=== PATIENT | male | born 1975 | race African-American/Black ===

== ENCOUNTER 2018-10-30 20:20 | Inpatient (IN) | payer BC, OTHER ==
[~2018-10-30] VITALS: Ht 167.6 cm; Wt 113.9 kg
[2018-10-30 21:09] LABS: BASO # 0.1 x10^3/uL (0.0-0.2); BASO % 1 % (0-3); EOS % 0 % (0-3); HEMATOCRIT 43.6 % (39.0-53.0); HEMOGLOBIN 15.3 g/dL (13.0-17.5); LYMPH # 1.2 x10^3/uL (1.0-4.8); LYMPH % 9 % (24-48); MEAN CORPUSCULAR HEMOGLOBIN 30 pg (25-35); MEAN CORPUSCULAR HGB CONC 35 g/dL (31-37); MEAN CORPUSCULAR VOLUME 87 fL (79-100); MONO % 7 % (0-9); NEUT # 11.4 x10^3uL (1.8-7.7); NEUT % 83 % (31-73); PLATELET COUNT 223 x10^3/uL (140-400); RED BLOOD COUNT 5.04 x10^6/uL (4.30-5.70); WHITE BLOOD COUNT 13.7 x10^3/uL (4.0-11.0)
[2018-10-30 21:29] LABS: ALBUMIN 3.6 g/dL (3.4-5.0); ALBUMIN/GLOBULIN RATIO 0.7 (1.0-1.7); CALCIUM 8.7 mg/dL (8.5-10.1); CREATININE 1.8 mg/dL (0.7-1.3); GFR 50.1; TOTAL BILIRUBIN 0.7 mg/dL (0.2-1.0); TOTAL PROTEIN 8.6 g/dL (6.4-8.2)
[2018-10-30 21:30] LABS: POTASSIUM 2.8 mmol/L (3.5-5.1)
[2018-10-30] MEDS ORDERED: IV NORMAL SALINE 1000ML BAG 1,000 ML IV ONE (21:30)
[2018-10-30] MEDS ORDERED: ACETAMINOPHEN 500 MG TABLET PO ONE (21:30)
[2018-10-30] MEDS ORDERED: LABETALOL 20 MG/4 ML DISP.SYRIN. IVP ONE (21:30)
--- NOTE | 2018-10-30 21:49 | RAD ---
Exam performed: CT scan of the head without contrast. Date of Service: 10/30/2018. Comparison: None available. Clinical History: Headache and fever. Technique: Helical acquisitions are obtained from the foramen magnum to the vertex without intravenous administration of contrast. Findings: The ventricles are midline without evidence of dilatation. Normal osborn-white differentiation is maintained. There is no extra axial fluid collection, intraparenchymal hemorrhage or mass lesion. The visualized portions of the orbits, paranasal sinuses and the mastoid air cells appear clear. The calvarium is intact. Impression: 1. No acute intracranial process detected. PQRS Compliance Statement: One or more of the following individualized dose reduction techniques were utilized for this examination: 1. Automated exposure control 2. Adjustment of the mA and/or kV according to patient size 3. Use of iterative reconstruction technique End impression Single view chest findings: A prior chest x-ray is not available for comparison, however report from chest x-ray dated September 12, 2018 was available There is a left suprahilar masslike opacity abutting the mediastinal surface. The right lung is clear. There is no pleural effusion or pneumothorax. Bones are normal. IMPRESSION: Left suprahilar masslike opacity. This could represent a round pneumonia or mass. Since this appears new since the prior exam as per the report, round pneumonia is suspected. Short-term interval follow-up chest x-ray after appropriate therapy may be obtained to ensure interval resolution. Electronically signed by: Umu Gordon MD (10/30/2018 9:46 PM) [facility]
[2018-10-30] MEDS ORDERED: ASPIRIN CHEWABLE 81 MG TABLET. PO ONE (22:00)
[2018-10-30] MEDS ORDERED: cefTRIAXone IV Push 1 GM VIAL. IVP ONE (22:00)
[2018-10-30] MEDS ORDERED: POTASSIUM CHLORIDE 20 MEQ/15 ML ORAL LIQUID. PO ONE (22:00)
[2018-10-30] MEDS ORDERED: DOXYCYCLINE HYCLATE 100 MG in IV DEXTROSE 5% 100ML 100 ML IV ONE (22:00)
[2018-10-30] MEDS ORDERED: LABETALOL 20 MG/4 ML DISP.SYRIN. IVP PRN (22:30)
[2018-10-30] MEDS ORDERED: ACETAMINOPHEN 325 MG TABLET. PO PRN (22:30)
[2018-10-30] MEDS ORDERED: ONDANSETRON PF 4 MG/2 ML VIAL. IV PRN (22:30)
[2018-10-30] MEDS ORDERED: BENZOCAINE/MENTHOL LOZENGE. PO PRN (22:30)
[2018-10-30] MEDS ORDERED: diphenhydrAMINE HCL 25 MG CAPSULE PO PRN (22:30)
[2018-10-30] MEDS ORDERED: METOPROLOL TARTRATE 5 MG/5 ML VIAL. IVP PRN (22:30)
--- NOTE | 2018-10-30 23:11 | PHYS DOC ---
Past Medical History Past Medical History: Hypertension Past Surgical History: Other Additional Past Surgical Histo: DENTAL WORK Alcohol Use: None Drug Use: None Adult General Chief Complaint Chief Complaint: HYPERTENSION HPI HPI Patient is a 43 year old male history of hypertension who is presenting with dizziness lightheadedness and just doesn't feel that well has been feeling weak all the last several days. No chest pain really no shortness of breath no cough some mild body aches no pain with urination no abdominal pain dizziness is described as lightheadedness mild frontal headache. Has been taking blood pressure medication amlodipine and lisinopril and one other one he tells me. Has not seen his doctor in a while however Finally BP was elevated 200 range at home so he came to the emergency room for evaluation. Review of Systems Review of Systems Constitutional: Denies fever or chills [] Eyes: Denies change in visual acuity, redness, or eye pain [] HENT: Denies nasal congestion or sore throat [] Respiratory: Denies cough or shortness of breath [] Cardiovascular: No additional information not addressed in HPI [] GI: Denies abdominal pain, nausea, vomiting, bloody stools or diarrhea [] : Denies dysuria or hematuria [] Musculoskeletal: Denies back pain or joint pain [] Integument: Denies rash or skin lesions [] Neurologic: Denies headache, focal weakness or sensory changes [] Endocrine: Denies polyuria or polydipsia [] All other systems were reviewed and found to be within normal limits, except as documented in this note. Current Medications Current Medications Current Medications Medications (Trade) Dose Ordered Sig/Roselia Start Time Stop Time Status Last Admin Dose Admin Acetaminophen (Tylenol) 500 mg PRN Q6HRS PRN 10/30/18 22:30 Albuterol/ Ipratropium (Duoneb) 3 ml RTQID 10/31/18 08:00 Aspirin (Children'S Aspirin) 324 mg 1X ONCE 10/30/18 22:00 10/30/18 22:01 DC 10/30/18 22:07 324 MG Azithromycin (Zithromax) 250 mg DAILY 10/31/18 09:00 Ceftriaxone Sodium (Rocephin) 1 gm Q24H 10/31/18 22:00 Diphenhydramine HCl (Benadryl) 25 mg PRN QHS PRN 10/30/18 22:30 Doxycycline Hyclate 100 mg/ Dextrose 100 ml @ 50 mls/hr 1X ONCE 10/30/18 22:00 10/30/18 23:59 10/30/18 22:08 50 MLS/HR Guaifenesin (Robitussin Dm) 10 ml PRN Q6HRS PRN 10/30/18 22:30 Labetalol HCl (Normodyne Iv Push) 20 mg PRN Q2HRS PRN 10/30/18 22:30 10/30/18 23:00 DC Lactobacillus Rhamnosus (Culturelle) 1 cap BID 10/31/18 09:00 Metoprolol Tartrate (Lopressor Vial) 10 mg PRN Q6HRS PRN 10/30/18 22:30 Ondansetron HCl (Zofran) 4 mg PRN Q6HRS PRN 10/30/18 22:30 Potassium Chloride (KCl Oral Soln) 40 meq 1X ONCE 10/30/18 22:00 10/30/18 22:01 DC 10/30/18 22:07 40 MEQ Sodium Chloride 1,000 ml @ 100 mls/hr Q10H 10/30/18 22:30 Throat Lozenges (Cepacol Sore Throat Lozenge) 1 kasey PRN Q2HRS PRN 10/30/18 22:30 Allergies Allergies Allergies Coded Allergies Type Severity Reaction Last Updated Verified No Known Drug Allergies 10/30/18 No Physical Exam Physical Exam Constitutional: Well developed, well nourished, no acute distress, non-toxic appearance. [] HENT: Normocephalic, atraumatic, bilateral external ears normal, oropharynx moist, no oral exudates, nose normal. [] Eyes: PERRLA, EOMI, conjunctiva normal, no discharge. [] Neck: Normal range of motion, no tenderness, supple, no stridor. [] Cardiovascular:Heart rate regular rhythm, no murmur [] Lungs & Thorax: Decreased breath sounds in the left midlung field Abdomen: Bowel sounds normal, soft, no tenderness, no masses, no pulsatile masses. [] Skin: Warm, dry, no erythema, no rash. [] Back: No tenderness, no CVA tenderness. [] Extremities: No tenderness, no cyanosis, no clubbing, ROM intact, no edema. [] Neurologic: Alert and oriented X 3, normal motor function, normal sensory function, no focal deficits noted. [] Psychologic: Affect normal, judgement normal, mood normal. [] Current Patient Data Vital Signs Vital Signs Date Time Temp Pulse Resp B/P (MAP) Pulse Ox O2 Delivery O2 Flow Rate FiO2 10/30/18 21:15 97 212/131 10/30/18 20:30 103.0 18 96 Room Air 103.0 Lab Values Laboratory Tests Test 10/30/18 20:55 White Blood Count 13.7 x10^3/uL (4.0-11.0) H Red Blood Count 5.04 x10^6/uL (4.30-5.70) Hemoglobin 15.3 g/dL (13.0-17.5) Hematocrit 43.6 % (39.0-53.0) Mean Corpuscular Volume 87 fL (79-100) Mean Corpuscular Hemoglobin 30 pg (25-35) Mean Corpuscular Hemoglobin Concent 35 g/dL (31-37) Red Cell Distribution Width 14.0 % (11.5-14.5) Platelet Count 223 x10^3/uL (140-400) Neutrophils (%) (Auto) 83 % (31-73) H Lymphocytes (%) (Auto) 9 % (24-48) L Monocytes (%) (Auto) 7 % (0-9) Eosinophils (%) (Auto) 0 % (0-3) Basophils (%) (Auto) 1 % (0-3) Neutrophils # (Auto) 11.4 x10^3uL (1.8-7.7) H Lymphocytes # (Auto) 1.2 x10^3/uL (1.0-4.8) Monocytes # (Auto) 1.0 x10^3/uL (0.0-1.1) Eosinophils # (Auto) 0.0 x10^3/uL (0.0-0.7) Basophils # (Auto) 0.1 x10^3/uL (0.0-0.2) Sodium Level 139 mmol/L (136-145) Potassium Level 2.8 mmol/L (3.5-5.1) *L Chloride Level 100 mmol/L (98-107) Carbon Dioxide Level 30 mmol/L (21-32) Anion Gap 9 (6-14) Blood Urea Nitrogen 12 mg/dL (8-26) Creatinine 1.8 mg/dL (0.7-1.3) H Estimated GFR (Cockcroft-Gault) 50.1 BUN/Creatinine Ratio 7 (6-20) Glucose Level 111 mg/dL (70-99) H Lactic Acid Level 1.3 mmol/L (0.4-2.0) Calcium Level 8.7 mg/dL (8.5-10.1) Total Bilirubin 0.7 mg/dL (0.2-1.0) Aspartate Amino Transferase (AST) 28 U/L (15-37) Alanine Aminotransferase (ALT) 36 U/L (16-63) Alkaline Phosphatase 68 U/L (46-116) Troponin I Quantitative 0.295 ng/mL (0.000-0.055) TM-Nvq-O-Type Natriuretic Peptide 1006 pg/mL (0-124) H Total Protein 8.6 g/dL (6.4-8.2) H Albumin 3.6 g/dL (3.4-5.0) Albumin/Globulin Ratio 0.7 (1.0-1.7) L Procalcitonin < 0.10 ng/mL (0.00-0.10) Laboratory Tests 10/30/18 20:55 Laboratory Tests 10/30/18 20:55 EKG EKG []EKG shows a sinus tachycardia rate 105 there are some T-wave inversions laterally this could be related to strain pattern however no old EKG is noted there is no ST elevation Radiology/Procedures Radiology/Procedures [] Impressions: Findings: The ventricles are midline without evidence of dilatation. Normal osborn-white differentiation is maintained. There is no extra axial fluid collection, intraparenchymal hemorrhage or mass lesion. The visualized portions of the orbits, paranasal sinuses and the mastoid air cells appear clear. The calvarium is intact. Impression: 1. No acute intracranial process detected. PQRS Compliance Statement: One or more of the following individualized dose reduction techniques were utilized for this examination: 1. Automated exposure control 2. Adjustment of the mA and/or kV according to patient size 3. Use of iterative reconstruction technique End impression Single view chest findings: A prior chest x-ray is not available for comparison, however report from chest x-ray dated September 12, 2018 was available There is a left suprahilar masslike opacity abutting the mediastinal surface. The right lung is clear. There is no pleural effusion or pneumothorax. Bones are normal. IMPRESSION: Left suprahilar masslike opacity. This could represent a round pneumonia or mass. Since this appears new since the prior exam as per the report, round pneumonia is suspected. Short-term interval follow-up chest x-ray after appropriate therapy may be obtained to ensure interval resolution. Electronically signed by: Umu Gordon MD (10/30/2018 9:46 PM) [facility] Course & Med Decision Making Course & Med Decision Making Pertinent Labs and Imaging studies reviewed. (See chart for details) []Lactic acid 1.3 the potassium was repleted the troponin the BNP are elevated somewhat. This is likely related to hypertensive urgency. Chest x-ray shows pneumonia patient had positive SIRS criteria patient was given IV fluids as well as appropriate antibiotics Lactic acid was normal blood pressure was very very elevated in fact was over 200 systolic so we gave a dose of labetalol for that due to the elevated troponin however I was cautious to not lower the blood pressure too much given the fever and pneumonia on examination Discussed with Dr. PRAKASH for admitted for pneumonia and hypertensive urgency I told the patient about the importance of chest x-ray follow-up in 1 month to ensure that this sort of unusual location of pneumonia clears up Critical care time was 35 minutes exclusive of procedures. For management of acute hypertensive urgency requiring IV blood pressure control. Dragon Disclaimer Dragon Disclaimer This electronic medical record was generated, in whole or in part, using a voice recognition dictation system. Departure Departure Impression: Primary Impression: Hypertensive urgency Additional Impression: Pneumonia Disposition: ADMITTED INPATIENT Admitting Physician: HIMAlana Condition: STABLE Referrals: NO PCP (PCP) Problem Qualifiers ANIYAH MCKENZIE MD Oct 30, 2018 23:11
[2018-10-31] VITALS (9 sets, daily range): BP systolic 151–221; BP diastolic 81–120
[2018-10-31] MEDS: IV NORMAL SALINE 1000ML BAG 1,000 ML IV SCH ×2 (01:07→09:40)
[2018-10-31] MEDS: IPRATRPIUM/ALBUTEROL 0.5/2.5MG 3 ML NEBU. NEB SCH ×4 (07:16→20:13)
--- NOTE | 2018-10-31 07:45 | EKG ---
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
[2018-10-31] MEDS: LACTOBACILLUS RHAMNOSUS GG 1 CAPSULE. PO SCH ×2 (07:49→21:26)
[2018-10-31] MEDS: AZITHROMYCIN 250 MG TABLET. PO SCH (07:49)
[2018-10-31 09:33] LABS: CALCIUM 8.3 mg/dL (8.5-10.1); GFR 44.3; POTASSIUM 3.2 mmol/L (3.5-5.1)
[2018-10-31] MEDS: hydrALAZINE 20 MG/ML VIAL. IVP PRN (09:40)
[2018-10-31 10:42] LABS: CHOLESTEROL/HDL RATIO 3.7
[2018-10-31] MEDS ORDERED: METOPROLOL TART IMMED RELEASE 25 MG TABLET. PO SCH (12:00)
[2018-10-31] MEDS ORDERED: cloNIDine HCL 0.1 MG TABLET PO SCH (12:00)
--- NOTE | 2018-10-31 12:52 | PDOC2 ---
CONSUELO WALLACE RESEARCH MECHANIC 10/31/18 1252: CARDIAC CONSULT DATE OF CONSULT Date of Consult DATE: 10/31/18 TIME: 12:11 REASON FOR CONSULT Reason for Consult: HTN urgency REFERRING PHYSICIAN Referring Physician: Yokasta SOURCE Source: Chart review, Patient HISTORY OF PRESENT ILLNESS HISTORY OF PRESENT ILLNESS This is a pleasant 43 yo male admitted for complains of FIGUEROA and dizziness. Reports that since last week he has been having episodes of bifrontal FIGUEROA and lightheadedness. No nausea, vomiting or any abdominal pain. No SOA, chest pain or palpitations. Reports no fever but did have some chills Wednesday. He has not been feeling that well. No recent falls, passing out or any injury. Reports no auditory or visual deficits and no focal neuro deficits. Reports no prior hx of CAD, VTE, arrhythmias, CKD. He has hx of HTN and HLP. He was suppose to be taking BP meds but stopped taking it 6 months ago as he failed to make his appointment with his PCP and his meds did not get refilled. Denies any recreational drug use. No tobacco nor ETOH. He does however go to the gym 30 min cardio and 30 min approx wt lifting 6x weekly without difficulty. He verbalized that he is currently stressed out citing that his father just recently moved in to his house because of dementia. Denies any steroid use. PAST MEDICAL HISTORY Cardiovascular: HTN, Hyperlipidemia Pulmonary: No pertinent hx CENTRAL NERVOUS SYSTEM: Other (No pertinent history) GI: No pertinent hx Heme/Onc: No pertinent hx Hepatobiliary: No pertinent hx Psych: No pertinent hx Musculoskeletal: Other (No pertinent history) Rheumatologic: No pertinent hx Infectious disease: No pertinent hx ENT: No pertinent hx Renal/: No pertinent hx Endocrine: No pertinent hx Dermatology: No pertinent hx PAST SURGICAL HISTORY Past Surgical History: No pertinent history FAMILY HISTORY Family History: Hypertension SOCIAL HISTORY Smoke: No ALCOHOL: none Drugs: None Lives: with Family CURRENT MEDICATIONS CURRENT MEDICATIONS Current Medications Medications (Trade) Dose Ordered Sig/Roselia Route PRN Reason Start Time Stop Time Status Last Admin Dose Admin Sodium Chloride 1,000 ml @ 1,000 mls/hr 1X ONCE IV 10/30/18 21:30 10/30/18 22:29 DC 10/30/18 21:14 Acetaminophen (Tylenol) 1,000 mg 1X ONCE PO 10/30/18 21:30 10/30/18 21:31 DC 10/30/18 21:14 Labetalol HCl (Normodyne Iv Push) 10 mg 1X ONCE IVP 10/30/18 21:30 10/30/18 21:31 DC 10/30/18 21:15 Potassium Chloride (KCl Oral Soln) 40 meq 1X ONCE PO 10/30/18 22:00 10/30/18 22:01 DC 10/30/18 22:07 Ceftriaxone Sodium (Rocephin) 1 gm 1X ONCE IVP 10/30/18 22:00 10/30/18 22:01 DC 10/30/18 22:07 Doxycycline Hyclate 100 mg/ Dextrose 100 ml @ 50 mls/hr 1X ONCE IV 10/30/18 22:00 10/30/18 23:59 DC 10/30/18 22:08 Aspirin (Children'S Aspirin) 324 mg 1X ONCE PO 10/30/18 22:00 10/30/18 22:01 DC 10/30/18 22:07 Albuterol/ Ipratropium (Duoneb) 3 ml RTQID NEB 10/31/18 08:00 10/31/18 11:24 Metoprolol Tartrate (Lopressor Vial) 10 mg PRN Q6HRS PRN IVP HYPERTENSION SBP>160 10/30/18 22:30 10/31/18 07:50 Sodium Chloride 1,000 ml @ 100 mls/hr Q10H IV 10/30/18 22:30 10/31/18 09:40 Azithromycin (Zithromax) 250 mg DAILY PO 10/31/18 09:00 10/31/18 07:49 Lactobacillus Rhamnosus (Culturelle) 1 cap BID PO 10/31/18 09:00 10/31/18 07:49 Hydralazine HCl (Apresoline Inj) 10 mg PRN Q6HRS PRN IVP ELEVATED BP, SEE COMMENTS 10/31/18 09:15 10/31/18 09:40 ALLERGIES ALLERGIES: Coded Allergies: No Known Drug Allergies (Unverified , 10/30/18) ROS Review of System 14 point ROS evaluated with pertinent positives noted per HPI PHYSICAL EXAM General: Alert, Oriented X3, Cooperative, No acute distress HEENT: Atraumatic, Mucous membr. moist/pink Lungs: Clear to auscultation, Normal air movement Heart: Regular rate (SR), Normal S1, Normal S2, No murmurs, Other (S4) Abdomen: Soft, No tenderness Extremities: No cyanosis, No edema Skin: No breakdown, No significant lesion Neuro: Normal speech, Sensation intact Psych/Mental Status: Mental status NL, Mood NL MUSCULOSKELETAL: Osteoarthritic changes both hands VITALS VITALS Vital Signs Date Time Temp Pulse Resp B/P (MAP) Pulse Ox O2 Delivery O2 Flow Rate FiO2 10/31/18 11:25 97 Nasal Cannula 10/31/18 09:40 100 208/119 10/31/18 07:30 98.9 20 98.9 LABS Lab: Laboratory Tests Test 10/30/18 20:55 10/30/18 21:20 10/31/18 00:55 10/31/18 04:20 White Blood Count 13.7 x10^3/uL (4.0-11.0) Red Blood Count 5.04 x10^6/uL (4.30-5.70) Hemoglobin 15.3 g/dL (13.0-17.5) Hematocrit 43.6 % (39.0-53.0) Mean Corpuscular Volume 87 fL (79-100) Mean Corpuscular Hemoglobin 30 pg (25-35) Mean Corpuscular Hemoglobin Concent 35 g/dL (31-37) Red Cell Distribution Width 14.0 % (11.5-14.5) Platelet Count 223 x10^3/uL (140-400) Neutrophils (%) (Auto) 83 % (31-73) Lymphocytes (%) (Auto) 9 % (24-48) Monocytes (%) (Auto) 7 % (0-9) Eosinophils (%) (Auto) 0 % (0-3) Basophils (%) (Auto) 1 % (0-3) Neutrophils # (Auto) 11.4 x10^3uL (1.8-7.7) Lymphocytes # (Auto) 1.2 x10^3/uL (1.0-4.8) Monocytes # (Auto) 1.0 x10^3/uL (0.0-1.1) Eosinophils # (Auto) 0.0 x10^3/uL (0.0-0.7) Basophils # (Auto) 0.1 x10^3/uL (0.0-0.2) Sodium Level 139 mmol/L (136-145) 141 mmol/L (136-145) Potassium Level 2.8 mmol/L (3.5-5.1) 3.2 mmol/L (3.5-5.1) Chloride Level 100 mmol/L (98-107) 100 mmol/L (98-107) Carbon Dioxide Level 30 mmol/L (21-32) 31 mmol/L (21-32) Anion Gap 9 (6-14) 10 (6-14) Blood Urea Nitrogen 12 mg/dL (8-26) 12 mg/dL (8-26) Creatinine 1.8 mg/dL (0.7-1.3) 2.0 mg/dL (0.7-1.3) Estimated GFR (Cockcroft-Gault) 50.1 44.3 BUN/Creatinine Ratio 7 (6-20) Glucose Level 111 mg/dL (70-99) 102 mg/dL (70-99) Lactic Acid Level 1.3 mmol/L (0.4-2.0) Calcium Level 8.7 mg/dL (8.5-10.1) 8.3 mg/dL (8.5-10.1) Total Bilirubin 0.7 mg/dL (0.2-1.0) Aspartate Amino Transf (AST/SGOT) 28 U/L (15-37) Alanine Aminotransferase (ALT/SGPT) 36 U/L (16-63) Alkaline Phosphatase 68 U/L (46-116) Troponin I Quantitative 0.295 ng/mL (0.000-0.055) 0.278 ng/mL (0.000-0.055) 0.281 ng/mL (0.000-0.055) RS-Uxf-N-Type Natriuretic Peptide 1006 pg/mL (0-124) Total Protein 8.6 g/dL (6.4-8.2) Albumin 3.6 g/dL (3.4-5.0) Albumin/Globulin Ratio 0.7 (1.0-1.7) Procalcitonin < 0.10 ng/mL (0.00-0.10) Group A Streptococcus Rapid Negative (NEGATIVE) Triglycerides Level 81 mg/dL (0-150) Cholesterol Level 208 mg/dL (0-200) LDL Cholesterol, Calculated 136 mg/dL (0-100) VLDL Cholesterol, Calculated 16 mg/dL (0-40) Non-HDL Cholesterol Calculated 152 mg/dL (0-129) HDL Cholesterol 56 mg/dL (40-60) Cholesterol/HDL Ratio 3.7 Thyroid Stimulating Hormone (TSH) 0.694 uIU/mL (0.358-3.74) ASSESSMENT/PLAN ASSESSMENT/PLAN 1. HTN urgency: remains labile 2. HLP 3. FIGUEROA/dizziness: due to uncontrolled HTN 4. Noncompliance: last BP med use 6 months ago 5. Elevated troponin: peaked at 0.29. EKG with LVH and diffuse ST-T wave changes, likely from LV strain/repolarization. NO cardiac symptoms. Suspect demand mediated, type 2 Pt does work out 6x weekly 30 min cardio and 30 min wt training without difficulty 6. CAP: per PCP 7. Morbid obesity 8. Renal insufficiency: Cr at 2 possible CKD3 9. 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 TTE. Renal duplex, repeat trop and EKG. UDS, Mg 2. Norvasc. coreg. chlorthalidone. labetolol IV PRN. Pending renal duplex ACEi/ARB would be a consideration 3. Avoid NSAIDs and encouraged HBPM. Dietitian consult for DASH diet. 4. Start on statin and ECASA 81 mg. Replace K 5. Discussed compliance, Follow up in office. ROJAS BURKETT MD 10/31/18 1800: CARDIAC CONSULT ASSESSMENT/PLAN ASSESSMENT/PLAN Patient seen and examined. Agree with RADAR SCIENTIST's assessment and plan. Accelerated hypertension secondary to noncompliance. 2-D echo showed normal LV function. Agree with renal arterial duplex scan to rule out renal vascular hypertension. We will titrate antihypertensives for better blood pressure control. Slight troponin elevation probably demand ischemia. No wall motion abnormalities on echocardiogram. We will consider ischemic evaluation as an outpatient. Thank you for your consultation. CONSUELO WALLACE APRN Oct 31, 2018 12:52 ROJAS BURKETT MD Oct 31, 2018 18:00
[2018-10-31] MEDS: amLODIPine BESYLATE 10 MG TABLET PO SCH (13:54)
[2018-10-31] MEDS: CHLORTHALIDONE 25 MG TABLET. PO SCH (13:54)
[2018-10-31] MEDS: ASPIRIN ENTERIC COATED 81 MG TABLET.DR. PO SCH (13:56)
[2018-10-31 14:14] LABS: BILIRUBIN,URINE NEGATIVE (NEG); CLARITY,URINE CLEAR; COLOR,URINE YELLOW; NITRITE,URINE NEGATIVE (NEG); PROTEIN,URINE 100 mg/dL (NEG-TRACE)
[2018-10-31 14:24] LABS: BACTERIA,URINE 0 /HPF (0-FEW); WBC,URINE 0 /HPF (0-4)
[2018-10-31 14:30] LABS: BARBITURATES NEG (NEG); BENZODIAZEPINES NEG (NEG); CANNABINOIDS NEG (NEG); COCAINE NEG (NEG); METHADONE NEG (NEG); OPIATES NEG (NEG); PHENCYCLIDINE NEG (NEG)
[2018-10-31 14:35] LABS: AMPHETAMINE/METHAMPHETAMINE NEG (NEG)
--- NOTE | 2018-10-31 15:01 | EKG ---
[facility] [address] [place] [address] Test Date: 2018-10-31 Test Time: 13:28:59 Pat Name: SHERRY TOBAR Department: Room: [facility] Gender: M Channel Specialist: : 1975 Requested By: CONSUELO WALLACE Order Number: [id number] Reading MD: Measurements Intervals [place] Rate: 104 P: 50 AL: 138 QRS: 25 QRSD: 84 T: 142 QT: 324 QTc: 426 Interpretive Statements SINUS TACHYCARDIA LEFT ATRIAL ABNORMALITY QRS(T) CONTOUR ABNORMALITY CONSISTENT WITH INFERIOR INFARCT AGE UNDETERMINED T ABNORMALITY IN ANTEROLATERAL LEADS ABNORMAL ECG RI6.01 Unconfirmed report No previous ECG available for comparison
--- NOTE | 2018-10-31 15:04 | NUR ---
Cardiology appt created on behalf of patient at the request of Jamie Lazaro on December 15, 2018 at 1300hrs
[2018-10-31] MEDS: ACETAMINOPHEN 500 MG TABLET PO PRN ×2 (16:13→22:11)
[2018-10-31] MEDS: CARVEDILOL 6.25 MG TABLET. PO SCH (16:13)
--- NOTE | 2018-10-31 16:38 | RAD ---
Arterial duplex ultrasound, bilateral renal arteries 10/31/2018 INDICATION: Elevated creatinine. Elevated blood pressure. Discussion: Ultrasound evaluation of the renal arteries was performed including color Doppler imaging spectral analysis. Gross evaluation of the kidneys demonstrate grossly normal in morphology. Right kidney measures 11.9 cm in length. Left kidney measures 12.6 cm in length. No hydronephrosis is identified. No other focal abnormalities are seen. Limited visualization of the bladder secondary to decompressed state. Peak systolic velocity within the right renal artery:146 cm/s Peak systolic velocity within the left renal artery : 64 cm/s. Peak systolic velocity within the abdominal aorta at the level the renal arteries measures 150 cm/s. Right renal aortic ratio 0.97 Left renal aortic ratio 0.42 (Normal renal aortic ratios are less than 3.5) persistent indices felt to be within normal limits. IMPRESSION: No sonographic evidence of hemodynamically significant renal arterial stenosis is identified. Electronically signed by: Silvano Miranda MD (10/31/2018 4:35 PM) [id number]
[2018-10-31] MEDS ORDERED: POTASSIUM CHLORIDE 20 MEQ TABLET.ER. PO ONE (17:00)
--- NOTE | 2018-10-31 17:14 | CARD ---
MR#: [id number] Date of Study: 10/31/2018 Ordering Physician: NATAN BURCH, Referring Physician: ARDEN PRAKASH Tech: Shabana Hall APPROVED REPORT EXAM: Two-dimensional and M-mode echocardiogram with Doppler and color Doppler. Other Information Quality : GoodHR: 105bpm INDICATION Hypertension/HCVD RISK FACTORS Hyperlipidemia 2D DIMENSIONS RVDd3.1 (2.9-3.5cm)Left Atrium(2D)4.3 (1.6-4.0cm) IVSd1.5 (0.7-1.1cm)Aortic Root(2D)3.2 (2.0-3.7cm) LVDd4.9 (3.9-5.9cm)LVOT Diameter2.2 (1.8-2.4cm) PWd1.5 (0.7-1.1cm)LVDs3.3 (2.5-4.0cm) FS (%) 31.4 %SV65.4 ml LVEF(%)59.2 (>50%) Aortic Valve AoV Peak Rafael.188.8cm/sAoV VTI30.0cm AO Peak GR.14.3mmHgLVOT VTI 17.00cm AO Mean GR.10mmHg Mitral Valve MV E Fuxiijan73.2cm/sMV DECEL [id number] MV A Hjfokmdj95.4cm/sE/A Ratio1.1 TDI Lateral E' P. V5.69cm/sMedial E' P. V5.63cm/s E/Lateral E'15.9E/Medial E'16.0 Tricuspid Valve TR P. Okkbyqsv327nu/sRAP [id number] TR Peak Gr.65uhDxIMNW71ddHq Pulmonary Vein S1 Djkpccgw39.5cm/sS2 Ksbwescn35.33cm/s D2 Zgnrvcdi73.3cm/sPVa ihwgahfo10thch LEFT VENTRICLE The left ventricle is normal size. There is moderate concentric left ventricular hypertrophy. The lef t ventricular systolic function is normal and the ejection fraction is within normal range. EF 55% Th ere is normal LV segmental wall motion. Transmitral Doppler flow pattern is Grade II-pseudonormal omero ling dynamics. RIGHT VENTRICLE The right ventricle is normal size. There is normal right ventricular wall thickness. The right ventr icular systolic function is normal. ATRIA The left atrium is borderline dilated. The right atrium size is normal. The interatrial septum is int act with no evidence for an atrial septal defect or patent foramen ovale as noted on 2-D or Doppler i maging. AORTIC VALVE The aortic valve is normal in structure and function. Doppler and Color Flow revealed no significant aortic regurgitation. There is no significant aortic valvular stenosis. MITRAL VALVE The mitral valve is normal in structure and function. There is no evidence of mitral valve prolapse. There is no mitral valve stenosis. Doppler and Color Flow revealed no mitral valve regurgitation note d. TRICUSPID VALVE The tricuspid valve is normal in structure and function. Doppler and Color Flow revealed no tricuspid valve regurgitation noted with an estimated PAP of 27 mmHg. There is no tricuspid valve stenosis. PULMONIC VALVE Doppler and Color Flow revealed no pulmonic valvular regurgitation. There is no pulmonic valvular terry nosis. GREAT VESSELS The aortic root is normal in size. The IVC is normal in size and collapses >50% with inspiration. PERICARDIAL EFFUSION There is no evidence of significant pericardial effusion. Critical Notification Critical Value: No <Conclusion> There is moderate concentric left ventricular hypertrophy. The left ventricular systolic function is normal and the ejection fraction is within normal range. EF 55% There is normal LV segmental wall motion. Signed by : Mingo Guy, Electronically Approved : 10/31/2018 17:14:04
[2018-10-31] MEDS ORDERED: MAGNESIUM SULFATE 2GM 50 ML IV ONE (17:45)
--- NOTE | 2018-10-31 17:48 | PDOC ---
PULMONARY PROGRESS NOTES Vitals Vital Signs Date Time Temp Pulse Resp B/P (MAP) Pulse Ox O2 Delivery O2 Flow Rate FiO2 10/31/18 16:13 108 166/81 10/31/18 16:01 97 Room Air 10/31/18 15:30 103.0 20 103.0 Labs Laboratory Tests Test 10/30/18 20:55 10/30/18 21:20 10/31/18 00:55 10/31/18 04:20 White Blood Count 13.7 x10^3/uL (4.0-11.0) Red Blood Count 5.04 x10^6/uL (4.30-5.70) Hemoglobin 15.3 g/dL (13.0-17.5) Hematocrit 43.6 % (39.0-53.0) Mean Corpuscular Volume 87 fL (79-100) Mean Corpuscular Hemoglobin 30 pg (25-35) Mean Corpuscular Hemoglobin Concent 35 g/dL (31-37) Red Cell Distribution Width 14.0 % (11.5-14.5) Platelet Count 223 x10^3/uL (140-400) Neutrophils (%) (Auto) 83 % (31-73) Lymphocytes (%) (Auto) 9 % (24-48) Monocytes (%) (Auto) 7 % (0-9) Eosinophils (%) (Auto) 0 % (0-3) Basophils (%) (Auto) 1 % (0-3) Neutrophils # (Auto) 11.4 x10^3uL (1.8-7.7) Lymphocytes # (Auto) 1.2 x10^3/uL (1.0-4.8) Monocytes # (Auto) 1.0 x10^3/uL (0.0-1.1) Eosinophils # (Auto) 0.0 x10^3/uL (0.0-0.7) Basophils # (Auto) 0.1 x10^3/uL (0.0-0.2) Sodium Level 139 mmol/L (136-145) 141 mmol/L (136-145) Potassium Level 2.8 mmol/L (3.5-5.1) 3.2 mmol/L (3.5-5.1) Chloride Level 100 mmol/L (98-107) 100 mmol/L (98-107) Carbon Dioxide Level 30 mmol/L (21-32) 31 mmol/L (21-32) Anion Gap 9 (6-14) 10 (6-14) Blood Urea Nitrogen 12 mg/dL (8-26) 12 mg/dL (8-26) Creatinine 1.8 mg/dL (0.7-1.3) 2.0 mg/dL (0.7-1.3) Estimated GFR (Cockcroft-Gault) 50.1 44.3 BUN/Creatinine Ratio 7 (6-20) Glucose Level 111 mg/dL (70-99) 102 mg/dL (70-99) Lactic Acid Level 1.3 mmol/L (0.4-2.0) Calcium Level 8.7 mg/dL (8.5-10.1) 8.3 mg/dL (8.5-10.1) Total Bilirubin 0.7 mg/dL (0.2-1.0) Aspartate Amino Transf (AST/SGOT) 28 U/L (15-37) Alanine Aminotransferase (ALT/SGPT) 36 U/L (16-63) Alkaline Phosphatase 68 U/L (46-116) Troponin I Quantitative 0.295 ng/mL (0.000-0.055) 0.278 ng/mL (0.000-0.055) 0.281 ng/mL (0.000-0.055) PX-Woi-U-Type Natriuretic Peptide 1006 pg/mL (0-124) Total Protein 8.6 g/dL (6.4-8.2) Albumin 3.6 g/dL (3.4-5.0) Albumin/Globulin Ratio 0.7 (1.0-1.7) Procalcitonin < 0.10 ng/mL (0.00-0.10) Group A Streptococcus Rapid Negative (NEGATIVE) Triglycerides Level 81 mg/dL (0-150) Cholesterol Level 208 mg/dL (0-200) LDL Cholesterol, Calculated 136 mg/dL (0-100) VLDL Cholesterol, Calculated 16 mg/dL (0-40) Non-HDL Cholesterol Calculated 152 mg/dL (0-129) HDL Cholesterol 56 mg/dL (40-60) Cholesterol/HDL Ratio 3.7 Thyroid Stimulating Hormone (TSH) 0.694 uIU/mL (0.358-3.74) Test 10/31/18 12:35 10/31/18 14:03 Magnesium Level 1.6 mg/dL (1.8-2.4) Troponin I Quantitative 0.320 ng/mL (0.000-0.055) Urine Collection Type Unknown Urine Color Yellow Urine Clarity Clear Urine pH 6.0 Urine Specific [place] 1.015 Urine Protein 100 mg/dL (NEG-TRACE) Urine Glucose (UA) Negative mg/dL (NEG) Urine Ketones (Stick) Negative mg/dL (NEG) Urine Blood Trace (NEG) Urine Nitrite Negative (NEG) Urine Bilirubin Negative (NEG) Urine Urobilinogen Dipstick 1.0 mg/dL (0.2 mg/dL) Urine Leukocyte Esterase Negative (NEG) Urine RBC 1-2 /HPF (0-2) Urine WBC 0 /HPF (0-4) Urine Squamous Epithelial Cells None /LPF Urine Bacteria 0 /HPF (0-FEW) Urine Opiates Screen Neg (NEG) Urine Methadone Screen Neg (NEG) Urine Barbiturates Neg (NEG) Urine Phencyclidine Screen Neg (NEG) Urine Amphetamine/Methamphetamine Neg (NEG) Urine Benzodiazepines Screen Neg (NEG) Urine Cocaine Screen Neg (NEG) Urine Cannabinoids Screen Neg (NEG) Urine Ethyl Alcohol Neg (NEG) Laboratory Tests Test 10/30/18 20:55 10/30/18 21:20 10/31/18 00:55 10/31/18 04:20 White Blood Count 13.7 x10^3/uL (4.0-11.0) Red Blood Count 5.04 x10^6/uL (4.30-5.70) Hemoglobin 15.3 g/dL (13.0-17.5) Hematocrit 43.6 % (39.0-53.0) Mean Corpuscular Volume 87 fL (79-100) Mean Corpuscular Hemoglobin 30 pg (25-35) Mean Corpuscular Hemoglobin Concent 35 g/dL (31-37) Red Cell Distribution Width 14.0 % (11.5-14.5) Platelet Count 223 x10^3/uL (140-400) Neutrophils (%) (Auto) 83 % (31-73) Lymphocytes (%) (Auto) 9 % (24-48) Monocytes (%) (Auto) 7 % (0-9) Eosinophils (%) (Auto) 0 % (0-3) Basophils (%) (Auto) 1 % (0-3) Neutrophils # (Auto) 11.4 x10^3uL (1.8-7.7) Lymphocytes # (Auto) 1.2 x10^3/uL (1.0-4.8) Monocytes # (Auto) 1.0 x10^3/uL (0.0-1.1) Eosinophils # (Auto) 0.0 x10^3/uL (0.0-0.7) Basophils # (Auto) 0.1 x10^3/uL (0.0-0.2) Sodium Level 139 mmol/L (136-145) 141 mmol/L (136-145) Potassium Level 2.8 mmol/L (3.5-5.1) 3.2 mmol/L (3.5-5.1) Chloride Level 100 mmol/L (98-107) 100 mmol/L (98-107) Carbon Dioxide Level 30 mmol/L (21-32) 31 mmol/L (21-32) Anion Gap 9 (6-14) 10 (6-14) Blood Urea Nitrogen 12 mg/dL (8-26) 12 mg/dL (8-26) Creatinine 1.8 mg/dL (0.7-1.3) 2.0 mg/dL (0.7-1.3) Estimated GFR (Cockcroft-Gault) 50.1 44.3 BUN/Creatinine Ratio 7 (6-20) Glucose Level 111 mg/dL (70-99) 102 mg/dL (70-99) Lactic Acid Level 1.3 mmol/L (0.4-2.0) Calcium Level 8.7 mg/dL (8.5-10.1) 8.3 mg/dL (8.5-10.1) Total Bilirubin 0.7 mg/dL (0.2-1.0) Aspartate Amino Transf (AST/SGOT) 28 U/L (15-37) Alanine Aminotransferase (ALT/SGPT) 36 U/L (16-63) Alkaline Phosphatase 68 U/L (46-116) Troponin I Quantitative 0.295 ng/mL (0.000-0.055) 0.278 ng/mL (0.000-0.055) 0.281 ng/mL (0.000-0.055) CY-Lmm-L-Type Natriuretic Peptide 1006 pg/mL (0-124) Total Protein 8.6 g/dL (6.4-8.2) Albumin 3.6 g/dL (3.4-5.0) Albumin/Globulin Ratio 0.7 (1.0-1.7) Procalcitonin < 0.10 ng/mL (0.00-0.10) Group A Streptococcus Rapid Negative (NEGATIVE) Triglycerides Level 81 mg/dL (0-150) Cholesterol Level 208 mg/dL (0-200) LDL Cholesterol, Calculated 136 mg/dL (0-100) VLDL Cholesterol, Calculated 16 mg/dL (0-40) Non-HDL Cholesterol Calculated 152 mg/dL (0-129) HDL Cholesterol 56 mg/dL (40-60) Cholesterol/HDL Ratio 3.7 Thyroid Stimulating Hormone (TSH) 0.694 uIU/mL (0.358-3.74) Test 10/31/18 12:35 10/31/18 14:03 Magnesium Level 1.6 mg/dL (1.8-2.4) Troponin I Quantitative 0.320 ng/mL (0.000-0.055) Urine Collection Type Unknown Urine Color Yellow Urine Clarity Clear Urine pH 6.0 Urine Specific [place] 1.015 Urine Protein 100 mg/dL (NEG-TRACE) Urine Glucose (UA) Negative mg/dL (NEG) Urine Ketones (Stick) Negative mg/dL (NEG) Urine Blood Trace (NEG) Urine Nitrite Negative (NEG) Urine Bilirubin Negative (NEG) Urine Urobilinogen Dipstick 1.0 mg/dL (0.2 mg/dL) Urine Leukocyte Esterase Negative (NEG) Urine RBC 1-2 /HPF (0-2) Urine WBC 0 /HPF (0-4) Urine Squamous Epithelial Cells None /LPF Urine Bacteria 0 /HPF (0-FEW) Urine Opiates Screen Neg (NEG) Urine Methadone Screen Neg (NEG) Urine Barbiturates Neg (NEG) Urine Phencyclidine Screen Neg (NEG) Urine Amphetamine/Methamphetamine Neg (NEG) Urine Benzodiazepines Screen Neg (NEG) Urine Cocaine Screen Neg (NEG) Urine Cannabinoids Screen Neg (NEG) Urine Ethyl Alcohol Neg (NEG) Impression . ABNORMAL CXR WILL OBTAIN A CT CHEST AGREE WITH CURRENT RX THANKS BEN WILSON MD Oct 31, 2018 17:48
--- NOTE | 2018-10-31 20:13 | PDOC1 ---
History and Physical Date of Admission Date of Admission DATE: 10/31/18 TIME: 19:53 Identification/Chief Complaint Chief Complaint FIGUEROA, elevated BP Problems: (1) Hypertensive urgency Source Source: Chart review, Patient History of Present Illness History of Present Illness 43 yo male with FIGUEROA and dizziness for several days. no sob or palpitations. dx of with HTN in 2014 and has been on MADHU-I, norvasc and hctz. 6 months ago started to experience rash so stopped BP meds. states BP has been high in 180-200 when he checks. does not follow with PCP at present. since Wednesday last week he has been having episodes of bifrontal FIGUEROA and lightheadedness. no chest pain or palpitations. no prior hx of CAD, VTE, arrhythmias. denies using drugs No tobacco nor ETOH. patient does exercise 6x/week. SBP remains 200s while on floor. at bedside. Past Medical History Cardiovascular: HTN, Hyperlipidemia Pulmonary: No pertinent hx CENTRAL NERVOUS SYSTEM: Other (No pertinent history) GI: No pertinent hx Heme/Onc: No pertinent hx Hepatobiliary: No pertinent hx Psych: No pertinent hx Musculoskeletal: Other (No pertinent history) Rheumatologic: No pertinent hx Infectious disease: No pertinent hx ENT: No pertinent hx Renal/: No pertinent hx Endocrine: No pertinent hx Dermatology: No pertinent hx Past Surgical History Past Surgical History: No pertinent history Family History Family History: Hypertension Social History Smoke: No ALCOHOL: none Drugs: None Current Medications Current Medications Current Medications Sodium Chloride 1,000 ml @ 1,000 mls/hr 1X ONCE IV Last administered on 10/30/18at 21:14; Start 10/30/18 at 21:30; Stop 10/30/18 at 22:29; Status DC Acetaminophen (Tylenol) 1,000 mg 1X ONCE PO Last administered on 10/30/18at 21:14; Start 10/30/18 at 21:30; Stop 10/30/18 at 21:31; Status DC Labetalol HCl (Normodyne Iv Push) 10 mg 1X ONCE IVP Last administered on 10/30/18at 21:15; Start 10/30/18 at 21:30; Stop 10/30/18 at 21:31; Status DC Potassium Chloride (KCl Oral Soln) 40 meq 1X ONCE PO Last administered on 10/30/18at 22:07; Start 10/30/18 at 22:00; Stop 10/30/18 at 22:01; Status DC Ceftriaxone Sodium (Rocephin) 1 gm 1X ONCE IVP Last administered on 10/30/18at 22:07; Start 10/30/18 at 22:00; Stop 10/30/18 at 22:01; Status DC Doxycycline Hyclate 100 mg/ Dextrose 100 ml @ 50 mls/hr 1X ONCE IV Last administered on 10/30/18at 22:08; Start 10/30/18 at 22:00; Stop 10/30/18 at 23:59; Status DC Aspirin (Children'S Aspirin) 324 mg 1X ONCE PO Last administered on 10/30/18at 22:07; Start 10/30/18 at 22:00; Stop 10/30/18 at 22:01; Status DC Acetaminophen (Tylenol) 650 mg PRN Q4HRS PRN PO FEVER; Start 10/30/18 at 22:30; Stop 10/30/18 at 22:30; Status DC Labetalol HCl (Normodyne Iv Push) 20 mg PRN Q2HRS PRN IVP ELEVATED BP, SEE COMMENTS; Start 10/30/18 at 22:30; Stop 10/30/18 at 23:00; Status DC Ondansetron HCl (Zofran) 4 mg PRN Q6HRS PRN IV NAUSEA/VOMITING 1ST CHOICE; Start 10/30/18 at 22:30 Acetaminophen (Tylenol) 500 mg PRN Q6HRS PRN PO MILD PAIN / TEMP Last administered on 10/31/18at 16:13; Start 10/30/18 at 22:30 Albuterol/ Ipratropium (Duoneb) 3 ml RTQID NEB Last administered on 10/31/18at 16:00; Start 10/31/18 at 08:00 Guaifenesin (Robitussin Dm) 10 ml PRN Q6HRS PRN PO COUGH 1ST CHOICE; Start 10/30/18 at 22:30 Diphenhydramine HCl (Benadryl) 25 mg PRN QHS PRN PO INSOMNIA 1ST CHOICE; Start 10/30/18 at 22:30 Metoprolol Tartrate (Lopressor Vial) 10 mg PRN Q6HRS PRN IVP HYPERTENSION SBP>160 Last administered on 10/31/18at 07:50; Start 10/30/18 at 22:30; Stop 10/31/18 at 17:35; Status DC Sodium Chloride 1,000 ml @ 100 mls/hr Q10H IV Last administered on 10/31/18at 09:40; Start 10/30/18 at 22:30; Stop 10/31/18 at 12:44; Status DC Ceftriaxone Sodium (Rocephin) 1 gm Q24H IVP ; Start 10/31/18 at 22:00 Azithromycin (Zithromax) 250 mg DAILY PO Last administered on 10/31/18at 07:49; Start 10/31/18 at 09:00 Throat Lozenges (Cepacol Sore Throat Lozenge) 1 kasey PRN Q2HRS PRN PO SORE THROAT; Start 10/30/18 at 22:30 Lactobacillus Rhamnosus (Culturelle) 1 cap BID PO Last administered on 10/31/18at 07:49; Start 10/31/18 at 09:00 Hydralazine HCl (Apresoline Inj) 10 mg PRN Q6HRS PRN IVP ELEVATED BP, SEE COMMENTS Last administered on 10/31/18at 09:40; Start 10/31/18 at 09:15 Metoprolol Tartrate (Lopressor) 25 mg BID PO ; Start 10/31/18 at 12:00; Stop 10/31/18 at 12:37; Status DC Amlodipine Besylate (Norvasc) 10 mg DAILY PO Last administered on 10/31/18at 13:54; Start 10/31/18 at 12:00 Clonidine HCl (Catapres) 0.1 mg BID PO ; Start 10/31/18 at 12:00; Stop 10/31/18 at 12:37; Status DC Carvedilol (Coreg) 6.25 mg BIDWMEALS PO Last administered on 10/31/18at 16:13; Start 10/31/18 at 17:00 Chlorthalidone (Thalitone) 25 mg DAILY PO Last administered on 10/31/18at 13:54; Start 10/31/18 at 12:30 Atorvastatin Calcium (Lipitor) 20 mg QHS PO ; Start 10/31/18 at 21:00 Labetalol HCl (Normodyne Iv Push) 20 mg PRN Q2HR PRN IVP HYPERTENSION; Start 10/31/18 at 12:30 Aspirin (Ecotrin) 81 mg DAILYWBKFT PO Last administered on 10/31/18at 13:56; Start 10/31/18 at 14:00 Potassium Chloride (Klor-Con) 20 meq 1X ONCE PO Last administered on 10/31/18at 16:13; Start 10/31/18 at 17:00; Stop 10/31/18 at 17:01; Status DC Magnesium Sulfate 50 ml @ 25 mls/hr 1X ONCE IV Last administered on 10/31/18at 18:21; Start 10/31/18 at 17:45; Stop 10/31/18 at 19:44; Status DC Allergies Allergies: Coded Allergies: No Known Drug Allergies (Unverified , 10/30/18) ROS Review of System CONSTITUTIONAL: No fever or chills EYES: No recent changes SKIN: No rash or itching CARDIOVASCULAR: No chest pain, syncope, palpitations, or edema RESPIRATORY: No SOB or cough GASTROINTESTINAL: No nausea, vomiting or abdominal pain NEUROLOGICAL: No headaches or weakness ENDOCRINE: No cold or heat intolerance GENITOURINARY: No urgency or frequency of urination MUSCULOSKELETAL: No back pain or joint pain LYMPHATICS: No enlarged lymph nodes PSYCHIATRIC: No anxiety or depression Physical Exam Physical Exam GENERAL: No apparent distress. Alert and oriented. HEENT: Head normocephalic, atraumatic. NECK: Supple LUNGS: Clear to auscultation. HEART: RRR, S1, S2 present, pulses intact ABDOMEN: Soft, positive bowel sounds. EXTREMITIES: No cyanosis or edema. NEUROLOGIC: Normal speech, normal tone PSYCHIATRIC: Normal affect, normal mood. SKIN: No ulceration. Vitals Vitals Vital Signs Date Time Temp Pulse Resp B/P (MAP) Pulse Ox O2 Delivery O2 Flow Rate FiO2 10/31/18 16:13 108 166/81 10/31/18 16:01 97 Room Air 10/31/18 15:30 103.0 20 103.0 Labs Labs Laboratory Tests Test 10/30/18 20:55 10/30/18 21:20 10/31/18 00:55 10/31/18 04:20 White Blood Count 13.7 x10^3/uL (4.0-11.0) Red Blood Count 5.04 x10^6/uL (4.30-5.70) Hemoglobin 15.3 g/dL (13.0-17.5) Hematocrit 43.6 % (39.0-53.0) Mean Corpuscular Volume 87 fL (79-100) Mean Corpuscular Hemoglobin 30 pg (25-35) Mean Corpuscular Hemoglobin Concent 35 g/dL (31-37) Red Cell Distribution Width 14.0 % (11.5-14.5) Platelet Count 223 x10^3/uL (140-400) Neutrophils (%) (Auto) 83 % (31-73) Lymphocytes (%) (Auto) 9 % (24-48) Monocytes (%) (Auto) 7 % (0-9) Eosinophils (%) (Auto) 0 % (0-3) Basophils (%) (Auto) 1 % (0-3) Neutrophils # (Auto) 11.4 x10^3uL (1.8-7.7) Lymphocytes # (Auto) 1.2 x10^3/uL (1.0-4.8) Monocytes # (Auto) 1.0 x10^3/uL (0.0-1.1) Eosinophils # (Auto) 0.0 x10^3/uL (0.0-0.7) Basophils # (Auto) 0.1 x10^3/uL (0.0-0.2) Sodium Level 139 mmol/L (136-145) 141 mmol/L (136-145) Potassium Level 2.8 mmol/L (3.5-5.1) 3.2 mmol/L (3.5-5.1) Chloride Level 100 mmol/L (98-107) 100 mmol/L (98-107) Carbon Dioxide Level 30 mmol/L (21-32) 31 mmol/L (21-32) Anion Gap 9 (6-14) 10 (6-14) Blood Urea Nitrogen 12 mg/dL (8-26) 12 mg/dL (8-26) Creatinine 1.8 mg/dL (0.7-1.3) 2.0 mg/dL (0.7-1.3) Estimated GFR (Cockcroft-Gault) 50.1 44.3 BUN/Creatinine Ratio 7 (6-20) Glucose Level 111 mg/dL (70-99) 102 mg/dL (70-99) Lactic Acid Level 1.3 mmol/L (0.4-2.0) Calcium Level 8.7 mg/dL (8.5-10.1) 8.3 mg/dL (8.5-10.1) Total Bilirubin 0.7 mg/dL (0.2-1.0) Aspartate Amino Transf (AST/SGOT) 28 U/L (15-37) Alanine Aminotransferase (ALT/SGPT) 36 U/L (16-63) Alkaline Phosphatase 68 U/L (46-116) Troponin I Quantitative 0.295 ng/mL (0.000-0.055) 0.278 ng/mL (0.000-0.055) 0.281 ng/mL (0.000-0.055) CY-Vmc-L-Type Natriuretic Peptide 1006 pg/mL (0-124) Total Protein 8.6 g/dL (6.4-8.2) Albumin 3.6 g/dL (3.4-5.0) Albumin/Globulin Ratio 0.7 (1.0-1.7) Procalcitonin < 0.10 ng/mL (0.00-0.10) Group A Streptococcus Rapid Negative (NEGATIVE) Triglycerides Level 81 mg/dL (0-150) Cholesterol Level 208 mg/dL (0-200) LDL Cholesterol, Calculated 136 mg/dL (0-100) VLDL Cholesterol, Calculated 16 mg/dL (0-40) Non-HDL Cholesterol Calculated 152 mg/dL (0-129) HDL Cholesterol 56 mg/dL (40-60) Cholesterol/HDL Ratio 3.7 Thyroid Stimulating Hormone (TSH) 0.694 uIU/mL (0.358-3.74) Test 10/31/18 12:35 10/31/18 14:03 Magnesium Level 1.6 mg/dL (1.8-2.4) Troponin I Quantitative 0.320 ng/mL (0.000-0.055) Urine Collection Type Unknown Urine Color Yellow Urine Clarity Clear Urine pH 6.0 Urine Specific [place] 1.015 Urine Protein 100 mg/dL (NEG-TRACE) Urine Glucose (UA) Negative mg/dL (NEG) Urine Ketones (Stick) Negative mg/dL (NEG) Urine Blood Trace (NEG) Urine Nitrite Negative (NEG) Urine Bilirubin Negative (NEG) Urine Urobilinogen Dipstick 1.0 mg/dL (0.2 mg/dL) Urine Leukocyte Esterase Negative (NEG) Urine RBC 1-2 /HPF (0-2) Urine WBC 0 /HPF (0-4) Urine Squamous Epithelial Cells None /LPF Urine Bacteria 0 /HPF (0-FEW) Urine Opiates Screen Neg (NEG) Urine Methadone Screen Neg (NEG) Urine Barbiturates Neg (NEG) Urine Phencyclidine Screen Neg (NEG) Urine Amphetamine/Methamphetamine Neg (NEG) Urine Benzodiazepines Screen Neg (NEG) Urine Cocaine Screen Neg (NEG) Urine Cannabinoids Screen Neg (NEG) Urine Ethyl Alcohol Neg (NEG) Laboratory Tests Test 10/30/18 20:55 10/30/18 21:20 10/31/18 00:55 10/31/18 04:20 White Blood Count 13.7 x10^3/uL (4.0-11.0) Red Blood Count 5.04 x10^6/uL (4.30-5.70) Hemoglobin 15.3 g/dL (13.0-17.5) Hematocrit 43.6 % (39.0-53.0) Mean Corpuscular Volume 87 fL (79-100) Mean Corpuscular Hemoglobin 30 pg (25-35) Mean Corpuscular Hemoglobin Concent 35 g/dL (31-37) Red Cell Distribution Width 14.0 % (11.5-14.5) Platelet Count 223 x10^3/uL (140-400) Neutrophils (%) (Auto) 83 % (31-73) Lymphocytes (%) (Auto) 9 % (24-48) Monocytes (%) (Auto) 7 % (0-9) Eosinophils (%) (Auto) 0 % (0-3) Basophils (%) (Auto) 1 % (0-3) Neutrophils # (Auto) 11.4 x10^3uL (1.8-7.7) Lymphocytes # (Auto) 1.2 x10^3/uL (1.0-4.8) Monocytes # (Auto) 1.0 x10^3/uL (0.0-1.1) Eosinophils # (Auto) 0.0 x10^3/uL (0.0-0.7) Basophils # (Auto) 0.1 x10^3/uL (0.0-0.2) Sodium Level 139 mmol/L (136-145) 141 mmol/L (136-145) Potassium Level 2.8 mmol/L (3.5-5.1) 3.2 mmol/L (3.5-5.1) Chloride Level 100 mmol/L (98-107) 100 mmol/L (98-107) Carbon Dioxide Level 30 mmol/L (21-32) 31 mmol/L (21-32) Anion Gap 9 (6-14) 10 (6-14) Blood Urea Nitrogen 12 mg/dL (8-26) 12 mg/dL (8-26) Creatinine 1.8 mg/dL (0.7-1.3) 2.0 mg/dL (0.7-1.3) Estimated GFR (Cockcroft-Gault) 50.1 44.3 BUN/Creatinine Ratio 7 (6-20) Glucose Level 111 mg/dL (70-99) 102 mg/dL (70-99) Lactic Acid Level 1.3 mmol/L (0.4-2.0) Calcium Level 8.7 mg/dL (8.5-10.1) 8.3 mg/dL (8.5-10.1) Total Bilirubin 0.7 mg/dL (0.2-1.0) Aspartate Amino Transf (AST/SGOT) 28 U/L (15-37) Alanine Aminotransferase (ALT/SGPT) 36 U/L (16-63) Alkaline Phosphatase 68 U/L (46-116) Troponin I Quantitative 0.295 ng/mL (0.000-0.055) 0.278 ng/mL (0.000-0.055) 0.281 ng/mL (0.000-0.055) IN-Yjd-E-Type Natriuretic Peptide 1006 pg/mL (0-124) Total Protein 8.6 g/dL (6.4-8.2) Albumin 3.6 g/dL (3.4-5.0) Albumin/Globulin Ratio 0.7 (1.0-1.7) Procalcitonin < 0.10 ng/mL (0.00-0.10) Group A Streptococcus Rapid Negative (NEGATIVE) Triglycerides Level 81 mg/dL (0-150) Cholesterol Level 208 mg/dL (0-200) LDL Cholesterol, Calculated 136 mg/dL (0-100) VLDL Cholesterol, Calculated 16 mg/dL (0-40) Non-HDL Cholesterol Calculated 152 mg/dL (0-129) HDL Cholesterol 56 mg/dL (40-60) Cholesterol/HDL Ratio 3.7 Thyroid Stimulating Hormone (TSH) 0.694 uIU/mL (0.358-3.74) Test 10/31/18 12:35 10/31/18 14:03 Magnesium Level 1.6 mg/dL (1.8-2.4) Troponin I Quantitative 0.320 ng/mL (0.000-0.055) Urine Collection Type Unknown Urine Color Yellow Urine Clarity Clear Urine pH 6.0 Urine Specific [place] 1.015 Urine Protein 100 mg/dL (NEG-TRACE) Urine Glucose (UA) Negative mg/dL (NEG) Urine Ketones (Stick) Negative mg/dL (NEG) Urine Blood Trace (NEG) Urine Nitrite Negative (NEG) Urine Bilirubin Negative (NEG) Urine Urobilinogen Dipstick 1.0 mg/dL (0.2 mg/dL) Urine Leukocyte Esterase Negative (NEG) Urine RBC 1-2 /HPF (0-2) Urine WBC 0 /HPF (0-4) Urine Squamous Epithelial Cells None /LPF Urine Bacteria 0 /HPF (0-FEW) Urine Opiates Screen Neg (NEG) Urine Methadone Screen Neg (NEG) Urine Barbiturates Neg (NEG) Urine Phencyclidine Screen Neg (NEG) Urine Amphetamine/Methamphetamine Neg (NEG) Urine Benzodiazepines Screen Neg (NEG) Urine Cocaine Screen Neg (NEG) Urine Cannabinoids Screen Neg (NEG) Urine Ethyl Alcohol Neg (NEG) VTE Prophylaxis Ordered VTE Prophylaxis Devices: Yes VTE Pharmacological Prophylaxi: Yes Assessment/Plan Assessment/Plan ASSESSMENT FIGUEROA and dizziness due to Accelerated HTN HLP medication non-compliance Elevated troponin suspect demand ischemia ? CAP Morbid obesity Renal Failure secondary to HTN, creatine 2.0 Plan start coreg, norvasc. defer MADHU-I, diuretic therapy given renal failure. ? chlorthalidone given renal failure. defer to cards TTE with preserved Ef consider outpatient ischemic check renal duplex start statin therapy CT chest pending given ? consolidation on chest xray continue ed and fernando apprec pulm and cards encouraged compliance NATAN BURCH MD Oct 31, 2018 20:13
[2018-10-31] MEDS: ATORVASTATIN CALCIUM 20 MG TABLET PO SCH (21:26)
[2018-10-31] MEDS: cefTRIAXone IV Push 1 GM VIAL. IVP SCH (21:27)
--- NOTE | 2018-10-31 22:21 | CONS ---
DATE OF CONSULTATION: 10/31/2018 ATTENDING PHYSICIAN: Dr. Flores REASON FOR CONSULTATION: The patient is seen in pulmonary consultation at the request of Dr. Flores for abnormal chest x-ray revealing possible hilar mass on the left. HISTORY OF PRESENT ILLNESS: The patient is a 43-year-old that was admitted because of headaches and dizziness. He had some bifrontal headaches and lightheadedness. He was found to have elevated blood pressure. He was admitted and evaluated. Part of his workup included chest x-ray, which revealed left suprahilar mass possible, I was consulted. The patient denies any prior history of any lung disorders. He has never smoked. There is no family history of lung disorders. PAST MEDICAL HISTORY: Hypertension and hyperlipidemia. PAST SURGICAL HISTORY: No recent major surgeries. ALLERGIES: No known drug allergies. SOCIAL HISTORY: He has never smoked. 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 FAMILY HISTORY: No family history of lung disorders. REVIEW OF SYSTEMS: CONSTITUTIONAL: No fever or chills. EYES: No change in visual acuity. HENT: No nasal congestion or sore throat. PULMONARY: As indicated above. CARDIOVASCULAR: No chest pain. No pressure. GASTROINTESTINAL: No nausea, vomiting, diarrhea. GENITOURINARY: No dysuria or frequency. MUSCULOSKELETAL: No localized muscle aches or joint pain. SKIN: No new skin rashes. NEUROLOGIC: No headaches, diplopia or blurred vision. MEDICATIONS: List was reviewed. PHYSICAL EXAMINATION: VITAL SIGNS: Stable. O2 saturation was greater than 92%. He did have a fever of 103.0. HEENT: Eyes, the sclerae were nonicteric. NECK: Jugular venous distention could not be assessed. There was no supraclavicular lymphadenopathy. CHEST: Full expansion. LUNGS: Adequate airway flow with no wheezes. CARDIOVASCULAR: Regular rate and rhythm with S1, S2, no S3. ABDOMEN: Soft, obese. EXTREMITIES: No clubbing, cyanosis or pitting edema. NEUROLOGIC: The patient was awake, alert, following commands. A detailed neuro exam was not performed. LABORATORY DATA: Reviewed. Creatinine was elevated. Cholesterol level was elevated. Magnesium was low. Troponin level was elevated. Potassium was low. IMPRESSION: 1. Abnormal chest x-ray revealing possible left suprahilar mass. 2. Hypertensive urgency. 3. Elevated troponin. 4. Fever. 5. Renal insufficiency. PLAN: 1. We will obtain CT chest. 2. Concur with current use of antibiotics for possible pneumonia. 3. Follow Cardiology input. 4. I will review the above and make further recommendations. I do appreciate the privilege in sharing in the patient's care. BEN WILSON MD DR: JERRY/liam JOB#: [id number] / [id number]
[2018-11-01 03:00] VITALS: BP 169/109
[2018-11-01] MEDS: LABETALOL 20 MG/4 ML DISP.SYRIN. IVP PRN (03:50)
[2018-11-01 04:22] LABS: BASO % 0 % (0-3); EOS % 0 % (0-3); HEMATOCRIT 40.4 % (39.0-53.0); HEMOGLOBIN 13.8 g/dL (13.0-17.5); LYMPH # 0.8 x10^3/uL (1.0-4.8); LYMPH % 7 % (24-48); MEAN CORPUSCULAR HEMOGLOBIN 29 pg (25-35); MEAN CORPUSCULAR HGB CONC 34 g/dL (31-37); MEAN CORPUSCULAR VOLUME 86 fL (79-100); MONO # 0.9 x10^3/uL (0.0-1.1); MONO % 8 % (0-9); NEUT # 9.5 x10^3uL (1.8-7.7); NEUT % 85 % (31-73); PLATELET COUNT 207 x10^3/uL (140-400); RED BLOOD COUNT 4.69 x10^6/uL (4.30-5.70); RED CELL DISTRIBUTION WIDTH 14.4 % (11.5-14.5); WHITE BLOOD COUNT 11.2 x10^3/uL (4.0-11.0)
[2018-11-01 05:29] LABS: CALCIUM 8.5 mg/dL (8.5-10.1); CREATININE 1.9 mg/dL (0.7-1.3); DIRECT BILIRUBIN 0.2 mg/dL (0.0-0.2); TOTAL BILIRUBIN 0.5 mg/dL (0.2-1.0); TOTAL PROTEIN 7.9 g/dL (6.4-8.2)
[2018-11-01 05:34] LABS: POTASSIUM 2.8 mmol/L (3.5-5.1)
[2018-11-01] MEDS ORDERED: POTASSIUM CHLORIDE 20 MEQ TABLET.ER. PO ONE ×2 (06:00→12:00)
[2018-11-01 07:20] VITALS: BP 174/93
[2018-11-01] MEDS: IPRATRPIUM/ALBUTEROL 0.5/2.5MG 3 ML NEBU. NEB SCH ×4 (08:12→21:18)
--- NOTE | 2018-11-01 08:31 | RAD ---
Examination: CT CHEST WO CONTRAST History: Hilar mass Comparison/Correlation: 10/30/2018 Portable Chest X-ray Exam Findings: Axial images of chest were obtained without contrast. Sagittal and coronal reformatted images were provided. Dense consolidative process identified extending from the left apical level to the encase the left upper lobe bronchus. It measures 7.6 and a longitudinal by 4.9 cm transverse by 7.3 cm anteroposterior. Air bronchograms are present within this mass. This masslike consolidation abuts the left side of the superior mediastinum and partially abuts the anterosuperior apical pleura. There is a nonenlarged left supraclavicular lymph node measuring up to 0.7 cm diameter on axial image 21. Nonenlarged prevascular space lymph nodes is present. Mild mosaic attenuation which may represent small airways disease noted. Very small left pleural effusion is present. There is no right lung infiltrate. Partially visualized upper abdomen is unremarkable. Mild circumferential thickening of the distal thoracic esophagus is present. Bony structures are unremarkable. Impression: Dense dense consolidative process involving the left medial upper lung extending from the left superior hilar aspect to the apex. Encasement of the left upper lobe bronchus noted. No enlarged lymph nodes. Follow-up to resolution is recommended. While infectious etiology likely accounts for this process, neoplastic components are not excluded. Small left pleural effusion also seen. Circumferential thickening of the distal esophagus. Correlate for underlying reflux. Alternatively findings may represent spasm or contraction. PQRS Compliance Statement: One or more of the following individualized dose reduction techniques were utilized for this examination: 1. Automated exposure control 2. Adjustment of the mA and/or kV according to patient size 3. Use of iterative reconstruction technique Electronically signed by: Johnson Chavez MD (11/01/2018 8:28 AM) [id number]
--- NOTE | 2018-11-01 08:33 | PDOC ---
PULMONARY PROGRESS NOTES Subjective PT NOT MORE SOA HAD TEMP ELEVATION THIS AM Vitals Vital Signs Date Time Temp Pulse Resp B/P (MAP) Pulse Ox O2 Delivery O2 Flow Rate FiO2 11/01/18 08:14 98 Room Air 11/01/18 03:50 104 169/109 11/01/18 03:00 100.2 18 100.2 ROS: No Nausea, No Chest Pain, No Abdominal Pain, No Increase Cough General: Alert Lungs: Clear Cardiovascular: S1, S2 Abdomen: Soft Neuro Exam: Alert Extremities: No Edema Skin: Warm Labs Laboratory Tests Test 10/30/18 20:55 10/30/18 21:20 10/31/18 00:55 10/31/18 04:20 White Blood Count 13.7 x10^3/uL (4.0-11.0) Red Blood Count 5.04 x10^6/uL (4.30-5.70) Hemoglobin 15.3 g/dL (13.0-17.5) Hematocrit 43.6 % (39.0-53.0) Mean Corpuscular Volume 87 fL (79-100) Mean Corpuscular Hemoglobin 30 pg (25-35) Mean Corpuscular Hemoglobin Concent 35 g/dL (31-37) Red Cell Distribution Width 14.0 % (11.5-14.5) Platelet Count 223 x10^3/uL (140-400) Neutrophils (%) (Auto) 83 % (31-73) Lymphocytes (%) (Auto) 9 % (24-48) Monocytes (%) (Auto) 7 % (0-9) Eosinophils (%) (Auto) 0 % (0-3) Basophils (%) (Auto) 1 % (0-3) Neutrophils # (Auto) 11.4 x10^3uL (1.8-7.7) Lymphocytes # (Auto) 1.2 x10^3/uL (1.0-4.8) Monocytes # (Auto) 1.0 x10^3/uL (0.0-1.1) Eosinophils # (Auto) 0.0 x10^3/uL (0.0-0.7) Basophils # (Auto) 0.1 x10^3/uL (0.0-0.2) Sodium Level 139 mmol/L (136-145) 141 mmol/L (136-145) Potassium Level 2.8 mmol/L (3.5-5.1) 3.2 mmol/L (3.5-5.1) Chloride Level 100 mmol/L (98-107) 100 mmol/L (98-107) Carbon Dioxide Level 30 mmol/L (21-32) 31 mmol/L (21-32) Anion Gap 9 (6-14) 10 (6-14) Blood Urea Nitrogen 12 mg/dL (8-26) 12 mg/dL (8-26) Creatinine 1.8 mg/dL (0.7-1.3) 2.0 mg/dL (0.7-1.3) Estimated GFR (Cockcroft-Gault) 50.1 44.3 BUN/Creatinine Ratio 7 (6-20) Glucose Level 111 mg/dL (70-99) 102 mg/dL (70-99) Lactic Acid Level 1.3 mmol/L (0.4-2.0) Calcium Level 8.7 mg/dL (8.5-10.1) 8.3 mg/dL (8.5-10.1) Total Bilirubin 0.7 mg/dL (0.2-1.0) Aspartate Amino Transf (AST/SGOT) 28 U/L (15-37) Alanine Aminotransferase (ALT/SGPT) 36 U/L (16-63) Alkaline Phosphatase 68 U/L (46-116) Troponin I Quantitative 0.295 ng/mL (0.000-0.055) 0.278 ng/mL (0.000-0.055) 0.281 ng/mL (0.000-0.055) MS-Wbx-[id number]-Type Natriuretic Peptide 1006 pg/mL (0-124) Total Protein 8.6 g/dL (6.4-8.2) Albumin 3.6 g/dL (3.4-5.0) Albumin/Globulin Ratio 0.7 (1.0-1.7) Procalcitonin < 0.10 ng/mL (0.00-0.10) Group A Streptococcus Rapid Negative (NEGATIVE) Triglycerides Level 81 mg/dL (0-150) Cholesterol Level 208 mg/dL (0-200) LDL Cholesterol, Calculated 136 mg/dL (0-100) VLDL Cholesterol, Calculated 16 mg/dL (0-40) Non-HDL Cholesterol Calculated 152 mg/dL (0-129) HDL Cholesterol 56 mg/dL (40-60) Cholesterol/HDL Ratio 3.7 Thyroid Stimulating Hormone (TSH) 0.694 uIU/mL (0.358-3.74) Test 10/31/18 12:35 10/31/18 14:03 11/01/18 03:55 Magnesium Level 1.6 mg/dL (1.8-2.4) 2.2 mg/dL (1.8-2.4) Troponin I Quantitative 0.320 ng/mL (0.000-0.055) Urine Collection Type Unknown Urine Color Yellow Urine Clarity Clear Urine pH 6.0 Urine Specific [place] 1.015 Urine Protein 100 mg/dL (NEG-TRACE) Urine Glucose (UA) Negative mg/dL (NEG) Urine Ketones (Stick) Negative mg/dL (NEG) Urine Blood Trace (NEG) Urine Nitrite Negative (NEG) Urine Bilirubin Negative (NEG) Urine Urobilinogen Dipstick 1.0 mg/dL (0.2 mg/dL) Urine Leukocyte Esterase Negative (NEG) Urine RBC 1-2 /HPF (0-2) Urine WBC 0 /HPF (0-4) Urine Squamous Epithelial Cells None /LPF Urine Bacteria 0 /HPF (0-FEW) Urine Opiates Screen Neg (NEG) Urine Methadone Screen Neg (NEG) Urine Barbiturates Neg (NEG) Urine Phencyclidine Screen Neg (NEG) Urine Amphetamine/Methamphetamine Neg (NEG) Urine Benzodiazepines Screen Neg (NEG) Urine Cocaine Screen Neg (NEG) Urine Cannabinoids Screen Neg (NEG) Urine Ethyl Alcohol Neg (NEG) White Blood Count 11.2 x10^3/uL (4.0-11.0) Red Blood Count 4.69 x10^6/uL (4.30-5.70) Hemoglobin 13.8 g/dL (13.0-17.5) Hematocrit 40.4 % (39.0-53.0) Mean Corpuscular Volume 86 fL (79-100) Mean Corpuscular Hemoglobin 29 pg (25-35) Mean Corpuscular Hemoglobin Concent 34 g/dL (31-37) Red Cell Distribution Width 14.4 % (11.5-14.5) Platelet Count 207 x10^3/uL (140-400) Neutrophils (%) (Auto) 85 % (31-73) Lymphocytes (%) (Auto) 7 % (24-48) Monocytes (%) (Auto) 8 % (0-9) Eosinophils (%) (Auto) 0 % (0-3) Basophils (%) (Auto) 0 % (0-3) Neutrophils # (Auto) 9.5 x10^3uL (1.8-7.7) Lymphocytes # (Auto) 0.8 x10^3/uL (1.0-4.8) Monocytes # (Auto) 0.9 x10^3/uL (0.0-1.1) Eosinophils # (Auto) 0.0 x10^3/uL (0.0-0.7) Basophils # (Auto) 0.0 x10^3/uL (0.0-0.2) Sodium Level 136 mmol/L (136-145) Potassium Level 2.8 mmol/L (3.5-5.1) Chloride Level 97 mmol/L (98-107) Carbon Dioxide Level 27 mmol/L (21-32) Anion Gap 12 (6-14) Blood Urea Nitrogen 12 mg/dL (8-26) Creatinine 1.9 mg/dL (0.7-1.3) Estimated GFR (Cockcroft-Gault) 47.0 Glucose Level 188 mg/dL (70-99) Calcium Level 8.5 mg/dL (8.5-10.1) Total Bilirubin 0.5 mg/dL (0.2-1.0) Direct Bilirubin 0.2 mg/dL (0.0-0.2) Aspartate Amino Transf (AST/SGOT) 28 U/L (15-37) Alanine Aminotransferase (ALT/SGPT) 42 U/L (16-63) Alkaline Phosphatase 66 U/L (46-116) Total Protein 7.9 g/dL (6.4-8.2) Albumin 3.0 g/dL (3.4-5.0) Laboratory Tests Test 10/31/18 12:35 10/31/18 14:03 11/01/18 03:55 Magnesium Level 1.6 mg/dL (1.8-2.4) 2.2 mg/dL (1.8-2.4) Troponin I Quantitative 0.320 ng/mL (0.000-0.055) Urine Collection Type Unknown Urine Color Yellow Urine Clarity Clear Urine pH 6.0 Urine Specific [place] 1.015 Urine Protein 100 mg/dL (NEG-TRACE) Urine Glucose (UA) Negative mg/dL (NEG) Urine Ketones (Stick) Negative mg/dL (NEG) Urine Blood Trace (NEG) Urine Nitrite Negative (NEG) Urine Bilirubin Negative (NEG) Urine Urobilinogen Dipstick 1.0 mg/dL (0.2 mg/dL) Urine Leukocyte Esterase Negative (NEG) Urine RBC 1-2 /HPF (0-2) Urine WBC 0 /HPF (0-4) Urine Squamous Epithelial Cells None /LPF Urine Bacteria 0 /HPF (0-FEW) Urine Opiates Screen Neg (NEG) Urine Methadone Screen Neg (NEG) Urine Barbiturates Neg (NEG) Urine Phencyclidine Screen Neg (NEG) Urine Amphetamine/Methamphetamine Neg (NEG) Urine Benzodiazepines Screen Neg (NEG) Urine Cocaine Screen Neg (NEG) Urine Cannabinoids Screen Neg (NEG) Urine Ethyl Alcohol Neg (NEG) White Blood Count 11.2 x10^3/uL (4.0-11.0) Red Blood Count 4.69 x10^6/uL (4.30-5.70) Hemoglobin 13.8 g/dL (13.0-17.5) Hematocrit 40.4 % (39.0-53.0) Mean Corpuscular Volume 86 fL (79-100) Mean Corpuscular Hemoglobin 29 pg (25-35) Mean Corpuscular Hemoglobin Concent 34 g/dL (31-37) Red Cell Distribution Width 14.4 % (11.5-14.5) Platelet Count 207 x10^3/uL (140-400) Neutrophils (%) (Auto) 85 % (31-73) Lymphocytes (%) (Auto) 7 % (24-48) Monocytes (%) (Auto) 8 % (0-9) Eosinophils (%) (Auto) 0 % (0-3) Basophils (%) (Auto) 0 % (0-3) Neutrophils # (Auto) 9.5 x10^3uL (1.8-7.7) Lymphocytes # (Auto) 0.8 x10^3/uL (1.0-4.8) Monocytes # (Auto) 0.9 x10^3/uL (0.0-1.1) Eosinophils # (Auto) 0.0 x10^3/uL (0.0-0.7) Basophils # (Auto) 0.0 x10^3/uL (0.0-0.2) Sodium Level 136 mmol/L (136-145) Potassium Level 2.8 mmol/L (3.5-5.1) Chloride Level 97 mmol/L (98-107) Carbon Dioxide Level 27 mmol/L (21-32) Anion Gap 12 (6-14) Blood Urea Nitrogen 12 mg/dL (8-26) Creatinine 1.9 mg/dL (0.7-1.3) Estimated GFR (Cockcroft-Gault) 47.0 Glucose Level 188 mg/dL (70-99) Calcium Level 8.5 mg/dL (8.5-10.1) Total Bilirubin 0.5 mg/dL (0.2-1.0) Direct Bilirubin 0.2 mg/dL (0.0-0.2) Aspartate Amino Transf (AST/SGOT) 28 U/L (15-37) Alanine Aminotransferase (ALT/SGPT) 42 U/L (16-63) Alkaline Phosphatase 66 U/L (46-116) Total Protein 7.9 g/dL (6.4-8.2) Albumin 3.0 g/dL (3.4-5.0) Impression . IMPRESSION: 1. Abnormal chest x-ray revealing possible left suprahilar mass. 2. Hypertensive urgency. 3. Elevated troponin. 4. Fever. 5. Renal insufficiency. 6. PENUMONIA GRAM NEG/POSITIVE PNEUMONIA CT CHEST Impression: Dense dense consolidative process involving the left medial upper lung extending from the left superior hilar aspect to the apex. Encasement of the left upper lobe bronchus noted. No enlarged lymph nodes. Follow-up to resolution is recommended. While infectious etiology likely accounts for this process, neoplastic components are not excluded. Small left pleural effusion also seen. Circumferential thickening of the distal esophagus. Correlate for underlying reflux. Alternatively findings may represent spasm or contraction. Plan . ANTIBX REPEAT CT IN 2 MONTHS HOME ONCE AFEBRILE FOR 24 HOURS BEN WILSON MD Nov 01, 2018 08:33
[2018-11-01] MEDS: ASPIRIN ENTERIC COATED 81 MG TABLET.DR. PO SCH (09:11)
[2018-11-01] MEDS: LACTOBACILLUS RHAMNOSUS GG 1 CAPSULE. PO SCH ×2 (09:11→20:47)
[2018-11-01] MEDS: ACETAMINOPHEN 500 MG TABLET PO PRN ×2 (09:12→20:47)
[2018-11-01] MEDS: AZITHROMYCIN 250 MG TABLET. PO SCH (09:12)
[2018-11-01] MEDS: CHLORTHALIDONE 25 MG TABLET. PO SCH (09:13)
[2018-11-01] MEDS: CARVEDILOL 6.25 MG TABLET. PO SCH (09:13)
[2018-11-01] MEDS: amLODIPine BESYLATE 10 MG TABLET PO SCH (09:13)
[2018-11-01 10:16] LABS: HEMOGLOBIN A1C 5.1 % (4.8-5.6)
[2018-11-01 11:40] VITALS: BP 160/94
--- NOTE | 2018-11-01 14:56 | PDOC ---
PROGRESS NOTES Chief Complaint Chief Complaint ASSESSMENT FIGUEROA and dizziness due to Accelerated HTN HLP medication non-compliance Elevated troponin suspect demand ischemia ? CAP, abnormal CT Morbid obesity Renal Failure secondary to HTN, creatine 2.0 Hypokalemia Plan started coreg, norvasc. defer MADHU-I, diuretic therapy given renal failure. ? chlorthalidone given renal failure. defer to cards TTE with preserved Ef consider outpatient ischemic check renal duplex: No sonographic evidence of hemodynamically significant renal arterial stenosis is identified. started statin therapy repeat CT chest in 2 months continue azithro and rocephin apprec pulm and cards encouraged compliance anticipate dc román if BP remains stable replace K Vitals Vitals Vital Signs Date Time Temp Pulse Resp B/P (MAP) Pulse Ox O2 Delivery O2 Flow Rate FiO2 11/01/18 11:48 98 Room Air 11/01/18 11:40 98.7 91 20 160/94 (116) 98.7 Physical Exam General: Alert, Oriented X3, Cooperative, No acute distress Heart: Regular rate (SR), Normal S1, Normal S2, No murmurs, Other (S4) Abdomen: Soft, No tenderness Extremities: No cyanosis, No edema Skin: No breakdown, No significant lesion Labs LABS Laboratory Tests Test 11/01/18 03:55 White Blood Count 11.2 x10^3/uL (4.0-11.0) Red Blood Count 4.69 x10^6/uL (4.30-5.70) Hemoglobin 13.8 g/dL (13.0-17.5) Hematocrit 40.4 % (39.0-53.0) Mean Corpuscular Volume 86 fL (79-100) Mean Corpuscular Hemoglobin 29 pg (25-35) Mean Corpuscular Hemoglobin Concent 34 g/dL (31-37) Red Cell Distribution Width 14.4 % (11.5-14.5) Platelet Count 207 x10^3/uL (140-400) Neutrophils (%) (Auto) 85 % (31-73) Lymphocytes (%) (Auto) 7 % (24-48) Monocytes (%) (Auto) 8 % (0-9) Eosinophils (%) (Auto) 0 % (0-3) Basophils (%) (Auto) 0 % (0-3) Neutrophils # (Auto) 9.5 x10^3uL (1.8-7.7) Lymphocytes # (Auto) 0.8 x10^3/uL (1.0-4.8) Monocytes # (Auto) 0.9 x10^3/uL (0.0-1.1) Eosinophils # (Auto) 0.0 x10^3/uL (0.0-0.7) Basophils # (Auto) 0.0 x10^3/uL (0.0-0.2) Sodium Level 136 mmol/L (136-145) Potassium Level 2.8 mmol/L (3.5-5.1) Chloride Level 97 mmol/L (98-107) Carbon Dioxide Level 27 mmol/L (21-32) Anion Gap 12 (6-14) Blood Urea Nitrogen 12 mg/dL (8-26) Creatinine 1.9 mg/dL (0.7-1.3) Estimated GFR (Cockcroft-Gault) 47.0 Glucose Level 188 mg/dL (70-99) Calcium Level 8.5 mg/dL (8.5-10.1) Magnesium Level 2.2 mg/dL (1.8-2.4) Total Bilirubin 0.5 mg/dL (0.2-1.0) Direct Bilirubin 0.2 mg/dL (0.0-0.2) Aspartate Amino Transf (AST/SGOT) 28 U/L (15-37) Alanine Aminotransferase (ALT/SGPT) 42 U/L (16-63) Alkaline Phosphatase 66 U/L (46-116) Total Protein 7.9 g/dL (6.4-8.2) Albumin 3.0 g/dL (3.4-5.0) Comment Review of Relevant I have reviewed the following items antonio (where applicable) has been applied. Labs Laboratory Tests Test 10/30/18 20:55 10/30/18 21:20 10/31/18 00:55 10/31/18 04:20 White Blood Count 13.7 x10^3/uL (4.0-11.0) Red Blood Count 5.04 x10^6/uL (4.30-5.70) Hemoglobin 15.3 g/dL (13.0-17.5) Hematocrit 43.6 % (39.0-53.0) Mean Corpuscular Volume 87 fL (79-100) Mean Corpuscular Hemoglobin 30 pg (25-35) Mean Corpuscular Hemoglobin Concent 35 g/dL (31-37) Red Cell Distribution Width 14.0 % (11.5-14.5) Platelet Count 223 x10^3/uL (140-400) Neutrophils (%) (Auto) 83 % (31-73) Lymphocytes (%) (Auto) 9 % (24-48) Monocytes (%) (Auto) 7 % (0-9) Eosinophils (%) (Auto) 0 % (0-3) Basophils (%) (Auto) 1 % (0-3) Neutrophils # (Auto) 11.4 x10^3uL (1.8-7.7) Lymphocytes # (Auto) 1.2 x10^3/uL (1.0-4.8) Monocytes # (Auto) 1.0 x10^3/uL (0.0-1.1) Eosinophils # (Auto) 0.0 x10^3/uL (0.0-0.7) Basophils # (Auto) 0.1 x10^3/uL (0.0-0.2) Sodium Level 139 mmol/L (136-145) 141 mmol/L (136-145) Potassium Level 2.8 mmol/L (3.5-5.1) 3.2 mmol/L (3.5-5.1) Chloride Level 100 mmol/L (98-107) 100 mmol/L (98-107) Carbon Dioxide Level 30 mmol/L (21-32) 31 mmol/L (21-32) Anion Gap 9 (6-14) 10 (6-14) Blood Urea Nitrogen 12 mg/dL (8-26) 12 mg/dL (8-26) Creatinine 1.8 mg/dL (0.7-1.3) 2.0 mg/dL (0.7-1.3) Estimated GFR (Cockcroft-Gault) 50.1 44.3 BUN/Creatinine Ratio 7 (6-20) Glucose Level 111 mg/dL (70-99) 102 mg/dL (70-99) Lactic Acid Level 1.3 mmol/L (0.4-2.0) Calcium Level 8.7 mg/dL (8.5-10.1) 8.3 mg/dL (8.5-10.1) Total Bilirubin 0.7 mg/dL (0.2-1.0) Aspartate Amino Transf (AST/SGOT) 28 U/L (15-37) Alanine Aminotransferase (ALT/SGPT) 36 U/L (16-63) Alkaline Phosphatase 68 U/L (46-116) Troponin I Quantitative 0.295 ng/mL (0.000-0.055) 0.278 ng/mL (0.000-0.055) 0.281 ng/mL (0.000-0.055) GR-Wzt-[id number]-Type Natriuretic Peptide 1006 pg/mL (0-124) Total Protein 8.6 g/dL (6.4-8.2) Albumin 3.6 g/dL (3.4-5.0) Albumin/Globulin Ratio 0.7 (1.0-1.7) Procalcitonin < 0.10 ng/mL (0.00-0.10) Group A Streptococcus Rapid Negative (NEGATIVE) Hemoglobin A1c 5.1 % (4.8-5.6) Triglycerides Level 81 mg/dL (0-150) Cholesterol Level 208 mg/dL (0-200) LDL Cholesterol, Calculated 136 mg/dL (0-100) VLDL Cholesterol, Calculated 16 mg/dL (0-40) Non-HDL Cholesterol Calculated 152 mg/dL (0-129) HDL Cholesterol 56 mg/dL (40-60) Cholesterol/HDL Ratio 3.7 Thyroid Stimulating Hormone (TSH) 0.694 uIU/mL (0.358-3.74) Test 10/31/18 12:35 10/31/18 14:03 11/01/18 03:55 Magnesium Level 1.6 mg/dL (1.8-2.4) 2.2 mg/dL (1.8-2.4) Troponin I Quantitative 0.320 ng/mL (0.000-0.055) Urine Collection Type Unknown Urine Color Yellow Urine Clarity Clear Urine pH 6.0 Urine Specific [place] 1.015 Urine Protein 100 mg/dL (NEG-TRACE) Urine Glucose (UA) Negative mg/dL (NEG) Urine Ketones (Stick) Negative mg/dL (NEG) Urine Blood Trace (NEG) Urine Nitrite Negative (NEG) Urine Bilirubin Negative (NEG) Urine Urobilinogen Dipstick 1.0 mg/dL (0.2 mg/dL) Urine Leukocyte Esterase Negative (NEG) Urine RBC 1-2 /HPF (0-2) Urine WBC 0 /HPF (0-4) Urine Squamous Epithelial Cells None /LPF Urine Bacteria 0 /HPF (0-FEW) Urine Opiates Screen Neg (NEG) Urine Methadone Screen Neg (NEG) Urine Barbiturates Neg (NEG) Urine Phencyclidine Screen Neg (NEG) Urine Amphetamine/Methamphetamine Neg (NEG) Urine Benzodiazepines Screen Neg (NEG) Urine Cocaine Screen Neg (NEG) Urine Cannabinoids Screen Neg (NEG) Urine Ethyl Alcohol Neg (NEG) White Blood Count 11.2 x10^3/uL (4.0-11.0) Red Blood Count 4.69 x10^6/uL (4.30-5.70) Hemoglobin 13.8 g/dL (13.0-17.5) Hematocrit 40.4 % (39.0-53.0) Mean Corpuscular Volume 86 fL (79-100) Mean Corpuscular Hemoglobin 29 pg (25-35) Mean Corpuscular Hemoglobin Concent 34 g/dL (31-37) Red Cell Distribution Width 14.4 % (11.5-14.5) Platelet Count 207 x10^3/uL (140-400) Neutrophils (%) (Auto) 85 % (31-73) Lymphocytes (%) (Auto) 7 % (24-48) Monocytes (%) (Auto) 8 % (0-9) Eosinophils (%) (Auto) 0 % (0-3) Basophils (%) (Auto) 0 % (0-3) Neutrophils # (Auto) 9.5 x10^3uL (1.8-7.7) Lymphocytes # (Auto) 0.8 x10^3/uL (1.0-4.8) Monocytes # (Auto) 0.9 x10^3/uL (0.0-1.1) Eosinophils # (Auto) 0.0 x10^3/uL (0.0-0.7) Basophils # (Auto) 0.0 x10^3/uL (0.0-0.2) Sodium Level 136 mmol/L (136-145) Potassium Level 2.8 mmol/L (3.5-5.1) Chloride Level 97 mmol/L (98-107) Carbon Dioxide Level 27 mmol/L (21-32) Anion Gap 12 (6-14) Blood Urea Nitrogen 12 mg/dL (8-26) Creatinine 1.9 mg/dL (0.7-1.3) Estimated GFR (Cockcroft-Gault) 47.0 Glucose Level 188 mg/dL (70-99) Calcium Level 8.5 mg/dL (8.5-10.1) Total Bilirubin 0.5 mg/dL (0.2-1.0) Direct Bilirubin 0.2 mg/dL (0.0-0.2) Aspartate Amino Transf (AST/SGOT) 28 U/L (15-37) Alanine Aminotransferase (ALT/SGPT) 42 U/L (16-63) Alkaline Phosphatase 66 U/L (46-116) Total Protein 7.9 g/dL (6.4-8.2) Albumin 3.0 g/dL (3.4-5.0) Laboratory Tests Test 11/01/18 03:55 White Blood Count 11.2 x10^3/uL (4.0-11.0) Red Blood Count 4.69 x10^6/uL (4.30-5.70) Hemoglobin 13.8 g/dL (13.0-17.5) Hematocrit 40.4 % (39.0-53.0) Mean Corpuscular Volume 86 fL (79-100) Mean Corpuscular Hemoglobin 29 pg (25-35) Mean Corpuscular Hemoglobin Concent 34 g/dL (31-37) Red Cell Distribution Width 14.4 % (11.5-14.5) Platelet Count 207 x10^3/uL (140-400) Neutrophils (%) (Auto) 85 % (31-73) Lymphocytes (%) (Auto) 7 % (24-48) Monocytes (%) (Auto) 8 % (0-9) Eosinophils (%) (Auto) 0 % (0-3) Basophils (%) (Auto) 0 % (0-3) Neutrophils # (Auto) 9.5 x10^3uL (1.8-7.7) Lymphocytes # (Auto) 0.8 x10^3/uL (1.0-4.8) Monocytes # (Auto) 0.9 x10^3/uL (0.0-1.1) Eosinophils # (Auto) 0.0 x10^3/uL (0.0-0.7) Basophils # (Auto) 0.0 x10^3/uL (0.0-0.2) Sodium Level 136 mmol/L (136-145) Potassium Level 2.8 mmol/L (3.5-5.1) Chloride Level 97 mmol/L (98-107) Carbon Dioxide Level 27 mmol/L (21-32) Anion Gap 12 (6-14) Blood Urea Nitrogen 12 mg/dL (8-26) Creatinine 1.9 mg/dL (0.7-1.3) Estimated GFR (Cockcroft-Gault) 47.0 Glucose Level 188 mg/dL (70-99) Calcium Level 8.5 mg/dL (8.5-10.1) Magnesium Level 2.2 mg/dL (1.8-2.4) Total Bilirubin 0.5 mg/dL (0.2-1.0) Direct Bilirubin 0.2 mg/dL (0.0-0.2) Aspartate Amino Transf (AST/SGOT) 28 U/L (15-37) Alanine Aminotransferase (ALT/SGPT) 42 U/L (16-63) Alkaline Phosphatase 66 U/L (46-116) Total Protein 7.9 g/dL (6.4-8.2) Albumin 3.0 g/dL (3.4-5.0) Microbiology 10/30/18 Blood Culture - Preliminary, Resulted NO GROWTH AFTER 1 DAY Medications Current Medications Sodium Chloride 1,000 ml @ 1,000 mls/hr 1X ONCE IV Last administered on 10/09 07/26at 21:14; Start 10/30/18 at 21:30; Stop 10/30/18 at 22:29; Status DC Acetaminophen (Tylenol) 1,000 mg 1X ONCE PO Last administered on 10/30/18 21:14; Start 10/30/18 at 21:30; Stop 10/30/18 at 21:31; Status DC Labetalol HCl (Normodyne Iv Push) 10 mg 1X ONCE IVP Last administered on 10/30/18 21:15; Start 10/30/18 at 21:30; Stop 10/30/18 at 21:31; Status DC Potassium Chloride (KCl Oral Soln) 40 meq 1X ONCE PO Last administered on 10/30/18at 22:07; Start 10/30/18 at 22:00; Stop 10/30/18 at 22:01; Status DC Ceftriaxone Sodium (Rocephin) 1 gm 1X ONCE IVP Last administered on 10/30/18at 22:07; Start 10/30/18 at 22:00; Stop 10/30/18 at 22:01; Status DC Doxycycline Hyclate 100 mg/ Dextrose 100 ml @ 50 mls/hr 1X ONCE IV Last administered on 10/30/18at 22:08; Start 10/30/18 at 22:00; Stop 10/30/18 at 23:59; Status DC Aspirin (Children'S Aspirin) 324 mg 1X ONCE PO Last administered on 10/30/18at 22:07; Start 10/30/18 at 22:00; Stop 10/30/18 at 22:01; Status DC Acetaminophen (Tylenol) 650 mg PRN Q4HRS PRN PO FEVER; Start 10/30/18 at 22:30; Stop 10/30/18 at 22:30; Status DC Labetalol HCl (Normodyne Iv Push) 20 mg PRN Q2HRS PRN IVP ELEVATED BP, SEE COMMENTS; Start 10/30/18 at 22:30; Stop 10/30/18 at 23:00; Status DC Ondansetron HCl (Zofran) 4 mg PRN Q6HRS PRN IV NAUSEA/VOMITING 1ST CHOICE; Start 10/30/18 at 22:30 Acetaminophen (Tylenol) 500 mg PRN Q6HRS PRN PO MILD PAIN / TEMP Last administered on 11/01/18at 09:12; Start 10/30/18 at 22:30 Albuterol/ Ipratropium (Duoneb) 3 ml RTQID NEB Last administered on 11/01/18at 11:48; Start 10/31/18 at 08:00 Guaifenesin (Robitussin Dm) 10 ml PRN Q6HRS PRN PO COUGH 1ST CHOICE; Start at 22:30 Diphenhydramine HCl (Benadryl) 25 mg PRN QHS PRN PO INSOMNIA 1ST CHOICE; Start 10/30/18 at 22:30 Metoprolol Tartrate (Lopressor Vial) 10 mg PRN Q6HRS PRN IVP HYPERTENSION SBP>160 Last administered on 10/31/18at 07:50; Start 10/30/18 at 22:30; Stop 10/31/18 at 17:35; Status DC Sodium Chloride 1,000 ml @ 100 mls/hr Q10H IV Last administered on 10/31/18 09:40; Start 10/30/18 at 22:30; Stop 10/31/18 at 12:44; Status DC Ceftriaxone Sodium (Rocephin) 1 gm Q24H IVP Last administered on 10/31/18 21:27; Start 10/31/18 at 22:00 Azithromycin (Zithromax) 250 mg DAILY PO Last administered on 11/01/18 09:12; Start 10/31/18 at 09:00 Throat Lozenges (Cepacol Sore Throat Lozenge) 1 kasey PRN Q2HRS PRN PO SORE THROAT; Start 10/30/18 at 22:30 Lactobacillus Rhamnosus (Culturelle) 1 cap BID PO Last administered on 11/01/18 09:11; Start 10/31/18 at 09:00 Hydralazine HCl (Apresoline Inj) 10 mg PRN Q6HRS PRN IVP ELEVATED BP, SEE COMMENTS Last administered on 10/31/18at 09:40; Start 10/31/18 at 09:15 Metoprolol Tartrate (Lopressor) 25 mg BID PO ; Start 10/31/18 at 12:00; Stop 10/31/18 at 12:37; Status DC Amlodipine Besylate (Norvasc) 10 mg DAILY PO Last administered on 11/01/18 09:13; Start 10/31/18 at 12:00 Clonidine HCl (Catapres) 0.1 mg BID PO ; Start 10/31/18 at 12:00; Stop 10/31/18 at 12:37; Status DC Carvedilol (Coreg) 6.25 mg BIDWMEALS PO Last administered on 11/01/18 09:13; Start 10/31/18 at 17:00 Chlorthalidone (Thalitone) 25 mg DAILY PO Last administered on 11/01/18 09:13; Start 10/31/18 at 12:30 Atorvastatin Calcium (Lipitor) 20 mg QHS PO Last administered on 10/31/18 21:26; Start 10/31/18 at 21:00 Labetalol HCl (Normodyne Iv Push) 20 mg PRN Q2HR PRN IVP HYPERTENSION Last administered on 11/01/18at 03:50; Start 10/31/18 at 12:30 Aspirin (Ecotrin) 81 mg DAILYWBKFT PO Last administered on 11/01/18at 09:11; Start 10/31/18 at 14:00 Potassium Chloride (Klor-Con) 20 meq 1X ONCE PO Last administered on 10/31/18at 16:13; Start 10/31/18 at 17:00; Stop 10/31/18 at 17:01; Status DC Magnesium Sulfate 50 ml @ 25 mls/hr 1X ONCE IV Last administered on 10/31/18at 18:21; Start 10/31/18 at 17:45; Stop 10/31/18 at 19:44; Status DC Potassium Chloride (Klor-Con) 40 meq 1X ONCE PO Last administered on 11/01/18at 06:05; Start 11/01/18 at 06:00; Stop 11/01/18 at 06:01; Status DC Potassium Chloride (Klor-Con) 40 meq 1X ONCE PO Last administered on 11/01/18at 13:04; Start 11/01/18 at 12:00; Stop 11/01/18 at 12:01; Status DC Vitals/I & O Vital Sign - Last 24 Hours 10/31/18 10/31/18 10/31/18 10/31/18 15:30 16:01 16:13 19:00 Temp 103.0 98.6 103.0 98.6 Pulse 108 108 94 Resp 20 18 B/P (MAP) 166/81 (109) 166/81 174/116 (135) Pulse Ox 98 97 97 O2 Delivery Room Air Room Air Room Air 10/31/18 10/31/18 10/31/18 11/01/18 19:47 20:14 22:50 03:00 Temp 101.5 100.2 101.5 100.2 Pulse 106 104 Resp 18 18 B/P (MAP) 151/84 (106) 169/109 (129) Pulse Ox 98 95 95 O2 Delivery Room Air Room Air Room Air Room Air 11/01/18 11/01/18 11/01/18 11/01/18 03:50 07:20 08:14 09:13 Temp 100.6 100.6 Pulse 104 99 104 Resp 20 B/P (MAP) 169/109 174/93 (120) 169/109 Pulse Ox 95 98 O2 Delivery Room Air Room Air 11/01/18 11/01/18 11/01/18 09:13 11:40 11:48 Temp 98.7 98.7 Pulse 104 91 Resp 20 B/P (MAP) 169/109 160/94 (116) Pulse Ox 96 98 O2 Delivery Room Air Room Air Intake and Output 10/31/18 10/31/18 11/01/18 15:00 23:00 07:00 Intake Total 240 ml 240 ml 900 ml Balance 240 ml 240 ml 900 ml NATAN BURCH MD Nov 01, 2018 14:56
[2018-11-01 15:40] VITALS: BP 172/105
--- NOTE | 2018-11-01 16:11 | PDOC ---
CARDIO Progress Notes Date and Time Date of Service 11/01/2018 Time of Evaluation 1600 Subjective Subjective: No Chest Pain, No shortness of breath, No Palpitations Vitals Vitals Vital Signs Date Time Temp Pulse Resp B/P (MAP) Pulse Ox O2 Delivery O2 Flow Rate FiO2 11/01/18 11:48 98 Room Air 11/01/18 11:40 98.7 91 20 160/94 (116) 98.7 Weight Weight [ ] Input and Output Intake and Output Intake and Output 11/01/18 07:00 Intake Total 1380 ml Balance 1380 ml Intake Oral 1380 ml Laboratory Labs Laboratory Tests Test 11/01/18 03:55 White Blood Count 11.2 x10^3/uL (4.0-11.0) Red Blood Count 4.69 x10^6/uL (4.30-5.70) Hemoglobin 13.8 g/dL (13.0-17.5) Hematocrit 40.4 % (39.0-53.0) Mean Corpuscular Volume 86 fL (79-100) Mean Corpuscular Hemoglobin 29 pg (25-35) Mean Corpuscular Hemoglobin Concent 34 g/dL (31-37) Red Cell Distribution Width 14.4 % (11.5-14.5) Platelet Count 207 x10^3/uL (140-400) Neutrophils (%) (Auto) 85 % (31-73) Lymphocytes (%) (Auto) 7 % (24-48) Monocytes (%) (Auto) 8 % (0-9) Eosinophils (%) (Auto) 0 % (0-3) Basophils (%) (Auto) 0 % (0-3) Neutrophils # (Auto) 9.5 x10^3uL (1.8-7.7) Lymphocytes # (Auto) 0.8 x10^3/uL (1.0-4.8) Monocytes # (Auto) 0.9 x10^3/uL (0.0-1.1) Eosinophils # (Auto) 0.0 x10^3/uL (0.0-0.7) Basophils # (Auto) 0.0 x10^3/uL (0.0-0.2) Sodium Level 136 mmol/L (136-145) Potassium Level 2.8 mmol/L (3.5-5.1) Chloride Level 97 mmol/L (98-107) Carbon Dioxide Level 27 mmol/L (21-32) Anion Gap 12 (6-14) Blood Urea Nitrogen 12 mg/dL (8-26) Creatinine 1.9 mg/dL (0.7-1.3) Estimated GFR (Cockcroft-Gault) 47.0 Glucose Level 188 mg/dL (70-99) Calcium Level 8.5 mg/dL (8.5-10.1) Magnesium Level 2.2 mg/dL (1.8-2.4) Total Bilirubin 0.5 mg/dL (0.2-1.0) Direct Bilirubin 0.2 mg/dL (0.0-0.2) Aspartate Amino Transf (AST/SGOT) 28 U/L (15-37) Alanine Aminotransferase (ALT/SGPT) 42 U/L (16-63) Alkaline Phosphatase 66 U/L (46-116) Total Protein 7.9 g/dL (6.4-8.2) Albumin 3.0 g/dL (3.4-5.0) Microbiology Micro Microbiology 10/30/18 Blood Culture - Preliminary, Resulted NO GROWTH AFTER 1 DAY Physical Exam HEENT: Neck Supple W Full Motion Chest: Symmetric LUNGS: Other (diminsihed bases) Heart: S1S2, RRR (SR/ST) Abdomen: Soft N/T Extremities: No Calf Tenderness Neurology: alert, oriented, follow commands Assessment Assessment 1. HTN urgency: remains labile 2. HLP 3. FIGUEROA/dizziness: due to uncontrolled HTN 4. Noncompliance: last BP med use 6 months ago 5. Elevated troponin: peaked at 0.32. suspect demand mediated, type 2. 6. CAP: per PCP. Still having fever 7. Morbid obesity 8. Suspect CKD3: HTN induced. No COREY 9. 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 Continue current BP regimen. Start on lisinopril and increase coreg. 2. Avoid NSAIDs and encouraged HBPM. Dietitian consult for DASH diet. 3. Statin and ECASA 81 mg. Replace K 4. Discussed compliance, Follow up in office 4-6 weeks. Will consider for outpt treadmill MPI. CONSUELO WALLACE APRN Nov 01, 2018 16:11
[2018-11-01] MEDS: CARVEDILOL 12.5 MG TABLET. PO SCH (17:31)
[2018-11-01 19:16] VITALS: BP 162/92
[2018-11-01] MEDS: cefTRIAXone IV Push 1 GM VIAL. IVP SCH (20:47)
[2018-11-01] MEDS: ATORVASTATIN CALCIUM 20 MG TABLET PO SCH (20:47)
[2018-11-01] MEDS: guaiFENesin DM 200MG/20MG 10 ML SYRUP PO PRN (20:47)
[2018-11-01] MEDS: hydrALAZINE 20 MG/ML VIAL. IVP PRN (20:48)
[2018-11-01 23:53] VITALS: BP 168/97
[2018-11-02] MEDS: LABETALOL 20 MG/4 ML DISP.SYRIN. IVP PRN (00:55)
[2018-11-02 03:11] VITALS: BP 154/100
[2018-11-02 04:51] LABS: CREATININE 1.7 mg/dL (0.7-1.3); GFR 53.5
[2018-11-02 04:54] LABS: POTASSIUM 2.9 mmol/L (3.5-5.1)
[2018-11-02] MEDS: POTASSIUM CHLORIDE 10MEQ 100 ML IV SCH ×4 (05:28→09:23)
[2018-11-02] MEDS ORDERED: POTASSIUM CHLORIDE 20 MEQ TABLET.ER. PO ONE (05:30)
[2018-11-02 07:30] VITALS: BP 189/112
[2018-11-02] MEDS: IPRATRPIUM/ALBUTEROL 0.5/2.5MG 3 ML NEBU. NEB SCH ×4 (07:55→19:56)
[2018-11-02] MEDS: LACTOBACILLUS RHAMNOSUS GG 1 CAPSULE. PO SCH ×2 (08:16→21:22)
[2018-11-02] MEDS: amLODIPine BESYLATE 10 MG TABLET PO SCH (08:17)
[2018-11-02] MEDS: AZITHROMYCIN 250 MG TABLET. PO SCH (08:17)
[2018-11-02] MEDS: ASPIRIN ENTERIC COATED 81 MG TABLET.DR. PO SCH (08:22)
[2018-11-02] MEDS: CARVEDILOL 12.5 MG TABLET. PO SCH (08:27)
[2018-11-02] MEDS ORDERED: LISINOPRIL 5 MG TABLET. PO SCH (09:00)
[2018-11-02] MEDS ORDERED: LISINOPRIL 10 MG TABLET PO SCH (09:00)
--- NOTE | 2018-11-02 09:09 | PDOC ---
PULMONARY PROGRESS NOTES Subjective NO MORE TEMP NOT MORE SOA Vitals Vital Signs Date Time Temp Pulse Resp B/P (MAP) Pulse Ox O2 Delivery O2 Flow Rate FiO2 11/02/18 08:27 97 189/112 11/02/18 08:00 Room Air 11/02/18 07:57 98 11/02/18 03:11 98.1 18 98.1 ROS: No Nausea, No Chest Pain, No Abdominal Pain, No Increase Cough General: Alert Lungs: Clear Cardiovascular: S1, S2 Abdomen: Soft Neuro Exam: Alert Extremities: No Edema Skin: Warm Labs Laboratory Tests Test 10/31/18 12:35 10/31/18 14:03 11/01/18 03:55 11/02/18 04:05 Magnesium Level 1.6 mg/dL (1.8-2.4) 2.2 mg/dL (1.8-2.4) 2.2 mg/dL (1.8-2.4) Troponin I Quantitative 0.320 ng/mL (0.000-0.055) Urine Collection Type Unknown Urine Color Yellow Urine Clarity Clear Urine pH 6.0 Urine Specific [place] 1.015 Urine Protein 100 mg/dL (NEG-TRACE) Urine Glucose (UA) Negative mg/dL (NEG) Urine Ketones (Stick) Negative mg/dL (NEG) Urine Blood Trace (NEG) Urine Nitrite Negative (NEG) Urine Bilirubin Negative (NEG) Urine Urobilinogen Dipstick 1.0 mg/dL (0.2 mg/dL) Urine Leukocyte Esterase Negative (NEG) Urine RBC 1-2 /HPF (0-2) Urine WBC 0 /HPF (0-4) Urine Squamous Epithelial Cells None /LPF Urine Bacteria 0 /HPF (0-FEW) Urine Opiates Screen Neg (NEG) Urine Methadone Screen Neg (NEG) Urine Barbiturates Neg (NEG) Urine Phencyclidine Screen Neg (NEG) Urine Amphetamine/Methamphetamine Neg (NEG) Urine Benzodiazepines Screen Neg (NEG) Urine Cocaine Screen Neg (NEG) Urine Cannabinoids Screen Neg (NEG) Urine Ethyl Alcohol Neg (NEG) White Blood Count 11.2 x10^3/uL (4.0-11.0) Red Blood Count 4.69 x10^6/uL (4.30-5.70) Hemoglobin 13.8 g/dL (13.0-17.5) Hematocrit 40.4 % (39.0-53.0) Mean Corpuscular Volume 86 fL (79-100) Mean Corpuscular Hemoglobin 29 pg (25-35) Mean Corpuscular Hemoglobin Concent 34 g/dL (31-37) Red Cell Distribution Width 14.4 % (11.5-14.5) Platelet Count 207 x10^3/uL (140-400) Neutrophils (%) (Auto) 85 % (31-73) Lymphocytes (%) (Auto) 7 % (24-48) Monocytes (%) (Auto) 8 % (0-9) Eosinophils (%) (Auto) 0 % (0-3) Basophils (%) (Auto) 0 % (0-3) Neutrophils # (Auto) 9.5 x10^3uL (1.8-7.7) Lymphocytes # (Auto) 0.8 x10^3/uL (1.0-4.8) Monocytes # (Auto) 0.9 x10^3/uL (0.0-1.1) Eosinophils # (Auto) 0.0 x10^3/uL (0.0-0.7) Basophils # (Auto) 0.0 x10^3/uL (0.0-0.2) Sodium Level 136 mmol/L (136-145) 136 mmol/L (136-145) Potassium Level 2.8 mmol/L (3.5-5.1) 2.9 mmol/L (3.5-5.1) Chloride Level 97 mmol/L (98-107) 97 mmol/L (98-107) Carbon Dioxide Level 27 mmol/L (21-32) 28 mmol/L (21-32) Anion Gap 12 (6-14) 11 (6-14) Blood Urea Nitrogen 12 mg/dL (8-26) 12 mg/dL (8-26) Creatinine 1.9 mg/dL (0.7-1.3) 1.7 mg/dL (0.7-1.3) Estimated GFR (Cockcroft-Gault) 47.0 53.5 Glucose Level 188 mg/dL (70-99) 162 mg/dL (70-99) Calcium Level 8.5 mg/dL (8.5-10.1) 9.0 mg/dL (8.5-10.1) Total Bilirubin 0.5 mg/dL (0.2-1.0) Direct Bilirubin 0.2 mg/dL (0.0-0.2) Aspartate Amino Transf (AST/SGOT) 28 U/L (15-37) Alanine Aminotransferase (ALT/SGPT) 42 U/L (16-63) Alkaline Phosphatase 66 U/L (46-116) Total Protein 7.9 g/dL (6.4-8.2) Albumin 3.0 g/dL (3.4-5.0) Laboratory Tests Test 11/02/18 04:05 Sodium Level 136 mmol/L (136-145) Potassium Level 2.9 mmol/L (3.5-5.1) Chloride Level 97 mmol/L (98-107) Carbon Dioxide Level 28 mmol/L (21-32) Anion Gap 11 (6-14) Blood Urea Nitrogen 12 mg/dL (8-26) Creatinine 1.7 mg/dL (0.7-1.3) Estimated GFR (Cockcroft-Gault) 53.5 Glucose Level 162 mg/dL (70-99) Calcium Level 9.0 mg/dL (8.5-10.1) Magnesium Level 2.2 mg/dL (1.8-2.4) Impression . IMPRESSION: 1. Abnormal chest x-ray revealing possible left suprahilar mass. 2. Hypertensive urgency. 3. Elevated troponin. 4. Fever. 5. Renal insufficiency. 6. PENUMONIA GRAM NEG/POSITIVE PNEUMONIA CT CHEST Impression: Dense dense consolidative process involving the left medial upper lung extending from the left superior hilar aspect to the apex. Encasement of the left upper lobe bronchus noted. No enlarged lymph nodes. Follow-up to resolution is recommended. While infectious etiology likely accounts for this process, neoplastic components are not excluded. Small left pleural effusion also seen. Circumferential thickening of the distal esophagus. Correlate for underlying reflux. Alternatively findings may represent spasm or contraction. Plan . ANTIBX REPEAT CT IN 2 MONTHS HOME IN AM IF ALL GOOD BEN WILSON MD Nov 02, 2018 09:09
[2018-11-02 11:30] VITALS: BP 155/101
--- NOTE | 2018-11-02 12:43 | NUR ---
SW following pt for dc needs. Chart reviewed. Pt is from home and no dc recommendation/SW needs noted at this time.
--- NOTE | 2018-11-02 12:45 | PDOC ---
PROGRESS NOTES Chief Complaint Chief Complaint ASSESSMENT FIGUEROA and dizziness due to Accelerated HTN HLP medication non-compliance Elevated troponin suspect demand ischemia ? CAP, abnormal CT Morbid obesity Renal Failure secondary to HTN, creatine 2.0-->1.7 Hypokalemia Plan increase coreg to 25 mg, norvasc 10 mg. defer MADHU-I, diuretic therapy given renal failure. DC CHLORTHALIDONE GIVEN persistently low K and renal failure TTE with preserved Ef consider outpatient ischemic check renal duplex: No sonographic evidence of hemodynamically significant renal arterial stenosis is identified. started statin therapy repeat CT chest in 2 months continue azithro and rocephin apprec pulm and cards encouraged compliance anticipate dc román if BP remains stable replace K Vitals Vitals Vital Signs Date Time Temp Pulse Resp B/P (MAP) Pulse Ox O2 Delivery O2 Flow Rate FiO2 11/02/18 08:27 97 189/112 11/02/18 08:00 Room Air 11/02/18 07:57 98 11/02/18 07:30 98.0 20 98.0 Physical Exam General: Alert, Oriented X3, Cooperative, No acute distress Heart: Regular rate (SR), Normal S1, Normal S2, No murmurs, Other (S4) Lungs: Clear Abdomen: Soft, No tenderness Extremities: No cyanosis, No edema Skin: No breakdown, No significant lesion Labs LABS Laboratory Tests Test 11/02/18 04:05 Sodium Level 136 mmol/L (136-145) Potassium Level 2.9 mmol/L (3.5-5.1) Chloride Level 97 mmol/L (98-107) Carbon Dioxide Level 28 mmol/L (21-32) Anion Gap 11 (6-14) Blood Urea Nitrogen 12 mg/dL (8-26) Creatinine 1.7 mg/dL (0.7-1.3) Estimated GFR (Cockcroft-Gault) 53.5 Glucose Level 162 mg/dL (70-99) Calcium Level 9.0 mg/dL (8.5-10.1) Magnesium Level 2.2 mg/dL (1.8-2.4) Comment Review of Relevant I have reviewed the following items antonio (where applicable) has been applied. Labs Laboratory Tests Test 10/31/18 14:03 11/01/18 03:55 11/02/18 04:05 Urine Collection Type Unknown Urine Color Yellow Urine Clarity Clear Urine pH 6.0 Urine Specific [place] 1.015 Urine Protein 100 mg/dL (NEG-TRACE) Urine Glucose (UA) Negative mg/dL (NEG) Urine Ketones (Stick) Negative mg/dL (NEG) Urine Blood Trace (NEG) Urine Nitrite Negative (NEG) Urine Bilirubin Negative (NEG) Urine Urobilinogen Dipstick 1.0 mg/dL (0.2 mg/dL) Urine Leukocyte Esterase Negative (NEG) Urine RBC 1-2 /HPF (0-2) Urine WBC 0 /HPF (0-4) Urine Squamous Epithelial Cells None /LPF Urine Bacteria 0 /HPF (0-FEW) Urine Opiates Screen Neg (NEG) Urine Methadone Screen Neg (NEG) Urine Barbiturates Neg (NEG) Urine Phencyclidine Screen Neg (NEG) Urine Amphetamine/Methamphetamine Neg (NEG) Urine Benzodiazepines Screen Neg (NEG) Urine Cocaine Screen Neg (NEG) Urine Cannabinoids Screen Neg (NEG) Urine Ethyl Alcohol Neg (NEG) White Blood Count 11.2 x10^3/uL (4.0-11.0) Red Blood Count 4.69 x10^6/uL (4.30-5.70) Hemoglobin 13.8 g/dL (13.0-17.5) Hematocrit 40.4 % (39.0-53.0) Mean Corpuscular Volume 86 fL (79-100) Mean Corpuscular Hemoglobin 29 pg (25-35) Mean Corpuscular Hemoglobin Concent 34 g/dL (31-37) Red Cell Distribution Width 14.4 % (11.5-14.5) Platelet Count 207 x10^3/uL (140-400) Neutrophils (%) (Auto) 85 % (31-73) Lymphocytes (%) (Auto) 7 % (24-48) Monocytes (%) (Auto) 8 % (0-9) Eosinophils (%) (Auto) 0 % (0-3) Basophils (%) (Auto) 0 % (0-3) Neutrophils # (Auto) 9.5 x10^3uL (1.8-7.7) Lymphocytes # (Auto) 0.8 x10^3/uL (1.0-4.8) Monocytes # (Auto) 0.9 x10^3/uL (0.0-1.1) Eosinophils # (Auto) 0.0 x10^3/uL (0.0-0.7) Basophils # (Auto) 0.0 x10^3/uL (0.0-0.2) Sodium Level 136 mmol/L (136-145) 136 mmol/L (136-145) Potassium Level 2.8 mmol/L (3.5-5.1) 2.9 mmol/L (3.5-5.1) Chloride Level 97 mmol/L (98-107) 97 mmol/L (98-107) Carbon Dioxide Level 27 mmol/L (21-32) 28 mmol/L (21-32) Anion Gap 12 (6-14) 11 (6-14) Blood Urea Nitrogen 12 mg/dL (8-26) 12 mg/dL (8-26) Creatinine 1.9 mg/dL (0.7-1.3) 1.7 mg/dL (0.7-1.3) Estimated GFR (Cockcroft-Gault) 47.0 53.5 Glucose Level 188 mg/dL (70-99) 162 mg/dL (70-99) Calcium Level 8.5 mg/dL (8.5-10.1) 9.0 mg/dL (8.5-10.1) Magnesium Level 2.2 mg/dL (1.8-2.4) 2.2 mg/dL (1.8-2.4) Total Bilirubin 0.5 mg/dL (0.2-1.0) Direct Bilirubin 0.2 mg/dL (0.0-0.2) Aspartate Amino Transf (AST/SGOT) 28 U/L (15-37) Alanine Aminotransferase (ALT/SGPT) 42 U/L (16-63) Alkaline Phosphatase 66 U/L (46-116) Total Protein 7.9 g/dL (6.4-8.2) Albumin 3.0 g/dL (3.4-5.0) Laboratory Tests Test 11/02/18 04:05 Sodium Level 136 mmol/L (136-145) Potassium Level 2.9 mmol/L (3.5-5.1) Chloride Level 97 mmol/L (98-107) Carbon Dioxide Level 28 mmol/L (21-32) Anion Gap 11 (6-14) Blood Urea Nitrogen 12 mg/dL (8-26) Creatinine 1.7 mg/dL (0.7-1.3) Estimated GFR (Cockcroft-Gault) 53.5 Glucose Level 162 mg/dL (70-99) Calcium Level 9.0 mg/dL (8.5-10.1) Magnesium Level 2.2 mg/dL (1.8-2.4) Microbiology 10/30/18 Blood Culture - Preliminary, Resulted NO GROWTH AFTER 2 DAYS Medications Current Medications Sodium Chloride 1,000 ml @ 1,000 mls/hr 1X ONCE IV Last administered on 10/30/18at 21:14; Start 10/30/18 at 21:30; Stop 10/30/18 at 22:29; Status DC Acetaminophen (Tylenol) 1,000 mg 1X ONCE PO Last administered on 10/30/18 21:14; Start 10/30/18 at 21:30; Stop 10/30/18 at 21:31; Status DC Labetalol HCl (Normodyne Iv Push) 10 mg 1X ONCE IVP Last administered on 10/30/18at 21:15; Start 10/30/18 at 21:30; Stop 10/30/18 at 21:31; Status DC Potassium Chloride (KCl Oral Soln) 40 meq 1X ONCE PO Last administered on 10/30/18 22:07; Start 10/30/18 at 22:00; Stop 10/30/18 at 22:01; Status DC Ceftriaxone Sodium (Rocephin) 1 gm 1X ONCE IVP Last administered on 10/30/18at 22:07; Start 10/30/18 at 22:00; Stop 10/30/18 at 22:01; Status DC Doxycycline Hyclate 100 mg/ Dextrose 100 ml @ 50 mls/hr 1X ONCE IV Last administered on 10/30/18at 22:08; Start 10/30/18 at 22:00; Stop 10/30/18 at 23:59; Status DC Aspirin (Children'S Aspirin) 324 mg 1X ONCE PO Last administered on 10/30/18at 22:07; Start 10/30/18 at 22:00; Stop 10/30/18 at 22:01; Status DC Acetaminophen (Tylenol) 650 mg PRN Q4HRS PRN PO FEVER; Start 10/30/18 at 22:30; Stop 10/30/18 at 22:30; Status DC Labetalol HCl (Normodyne Iv Push) 20 mg PRN Q2HRS PRN IVP ELEVATED BP, SEE COMMENTS; Start 10/30/18 at 22:30; Stop 10/30/18 at 23:00; Status DC Ondansetron HCl (Zofran) 4 mg PRN Q6HRS PRN IV NAUSEA/VOMITING 1ST CHOICE; Start 10/30/18 at 22:30 Acetaminophen (Tylenol) 500 mg PRN Q6HRS PRN PO MILD PAIN / TEMP Last administered on 11/01/18at 20:47; Start 10/30/18 at 22:30 Albuterol/ Ipratropium (Duoneb) 3 ml RTQID NEB Last administered on 11/02/18at 07:55; Start 10/31/18 at 08:00 Guaifenesin (Robitussin Dm) 10 ml PRN Q6HRS PRN PO COUGH 1ST CHOICE Last administered on 11/01/18 20:47; Start 10/30/18 at 22:30 Diphenhydramine HCl (Benadryl) 25 mg PRN QHS PRN PO INSOMNIA 1ST CHOICE; Start 10/30/18 at 22:30 Metoprolol Tartrate (Lopressor Vial) 10 mg PRN Q6HRS PRN IVP HYPERTENSION SBP>160 Last administered on 10/31/18at 07:50; Start 10/30/18 at 22:30; Stop 10/31/18 at 17:35; Status DC Sodium Chloride 1,000 ml @ 100 mls/hr Q10H IV Last administered on 10/31/18at 09:40; Start 10/30/18 at 22:30; Stop 10/31/18 at 12:44; Status DC Ceftriaxone Sodium (Rocephin) 1 gm Q24H IVP Last administered on 11/01/18 20:47; Start 10/31/18 at 22:00 Azithromycin (Zithromax) 250 mg DAILY PO Last administered on 11/02/18at 08:17; Start 10/31/18 at 09:00 Throat Lozenges (Cepacol Sore Throat Lozenge) 1 kasey PRN Q2HRS PRN PO SORE THROAT; Start 10/30/18 at 22:30 Lactobacillus Rhamnosus (Culturelle) 1 cap BID PO Last administered on 11/02/18at 08:16; Start 10/31/18 at 09:00 Hydralazine HCl (Apresoline Inj) 10 mg PRN Q6HRS PRN IVP ELEVATED BP, SEE COMMENTS Last administered on 11/01/18at 20:48; Start 10/31/18 at 09:15 Metoprolol Tartrate (Lopressor) 25 mg BID PO ; Start 10/31/18 at 12:00; Stop 10/31/18 at 12:37; Status DC Amlodipine Besylate (Norvasc) 10 mg DAILY PO Last administered on 11/02/18 08:17; Start 10/31/18 at 12:00 Clonidine HCl (Catapres) 0.1 mg BID PO ; Start 10/31/18 at 12:00; Stop 10/31/18 at 12:37; Status DC Carvedilol (Coreg) 6.25 mg BIDWMEALS PO Last administered on 11/01/18 09:13; Start 10/31/18 at 17:00; Stop 11/01/18 at 15:54; Status DC Chlorthalidone (Thalitone) 25 mg DAILY PO Last administered on 11/01/18 09:13; Start 10/31/18 at 12:30; Stop 11/02/18 at 07:50; Status DC Atorvastatin Calcium (Lipitor) 20 mg QHS PO Last administered on 11/01/18 20:47; Start 10/31/18 at 21:00 Labetalol HCl (Normodyne Iv Push) 20 mg PRN Q2HR PRN IVP HYPERTENSION Last administered on 11/02/18at 00:55; Start 10/31/18 at 12:30 Aspirin (Ecotrin) 81 mg DAILYWBKFT PO Last administered on 11/02/18at 08:22; Start 10/31/18 at 14:00 Potassium Chloride (Klor-Con) 20 meq 1X ONCE PO Last administered on 10/31/18 16:13; Start 10/31/18 at 17:00; Stop 10/31/18 at 17:01; Status DC Magnesium Sulfate 50 ml @ 25 mls/hr 1X ONCE IV Last administered on 10/31/18 18:21; Start 10/31/18 at 17:45; Stop 10/31/18 at 19:44; Status DC Potassium Chloride (Klor-Con) 40 meq 1X ONCE PO Last administered on 6/25/19at 06:05; Start 11/01/18 at 06:00; Stop 11/01/18 at 06:01; Status DC Potassium Chloride (Klor-Con) 40 meq 1X ONCE PO Last administered on 11/01/18at 13:04; Start 11/01/18 at 12:00; Stop 11/01/18 at 12:01; Status DC Carvedilol (Coreg) 12.5 mg BIDWMEALS PO Last administered on 11/02/18at 08:27; Start 11/01/18 at 17:00; Stop 11/02/18 at 09:26; Status DC Lisinopril (Prinivil) 5 mg DAILY PO ; Start 11/02/18 at 09:00; Stop 11/02/18 at 09:00; Status DC Lisinopril (Prinivil) 10 mg DAILY PO ; Start 11/02/18 at 09:00; Stop 11/02/18 at 09:00; Status DC Potassium Chloride/Water 100 ml @ 100 mls/hr Q1H IV Last administered on 11/02/18at 09:23; Start 11/02/18 at 06:00; Stop 11/02/18 at 09:59; Status DC Potassium Chloride (Klor-Con) 40 meq 1X ONCE PO Last administered on 11/02/18at 05:26; Start 11/02/18 at 05:30; Stop 11/02/18 at 05:31; Status DC Carvedilol (Coreg) 25 mg BIDWMEALS PO ; Start 11/03/18 at 08:00 Vitals/I & O Vital Sign - Last 24 Hours 11/01/18 11/01/18 11/01/18 11/01/18 15:40 16:20 17:31 19:16 Temp 100.0 102.1 100.0 102.1 Pulse 108 91 105 Resp 20 18 B/P (MAP) 172/105 (127) 160/94 162/92 (115) Pulse Ox 96 98 96 O2 Delivery Room Air Room Air Room Air 11/01/18 11/01/18 11/01/18 11/01/18 20:00 20:48 21:19 23:53 Temp 98.6 98.6 Pulse 105 97 Resp 18 B/P (MAP) 164/92 168/97 (120) Pulse Ox 98 99 O2 Delivery Room Air Room Air Room Air 11/02/18 11/02/18 11/02/18 11/02/18 00:55 03:11 07:30 07:57 Temp 98.1 98.0 98.1 98.0 Pulse 97 94 100 Resp 18 20 B/P (MAP) 168/97 154/100 (118) 189/112 (137) Pulse Ox 99 95 98 O2 Delivery Room Air Room Air Room Air 11/02/18 11/02/18 11/02/18 08:00 08:17 08:27 Pulse 94 97 B/P (MAP) 154/100 189/112 O2 Delivery Room Air Intake and Output 11/01/18 11/01/18 11/02/18 15:00 23:00 07:00 Intake Total 660 ml 800 ml Balance 660 ml 800 ml NATAN BURCH MD Nov 02, 2018 12:45
[2018-11-02 15:35] VITALS: BP 155/101
[2018-11-02 19:40] VITALS: BP 167/101
[2018-11-02] MEDS: ATORVASTATIN CALCIUM 20 MG TABLET PO SCH (21:22)
[2018-11-02] MEDS: cefTRIAXone IV Push 1 GM VIAL. IVP SCH (21:23)
[2018-11-02] MEDS: guaiFENesin DM 200MG/20MG 10 ML SYRUP PO PRN (21:35)
[2018-11-02 23:29] VITALS: BP 149/111
[2018-11-03 03:44] VITALS: BP 146/94
[2018-11-03 05:48] LABS: CALCIUM 9.2 mg/dL (8.5-10.1); CREATININE 1.5 mg/dL (0.7-1.3); GFR 61.8; POTASSIUM 3.3 mmol/L (3.5-5.1)
[2018-11-03 07:00] VITALS: BP 175/122
[2018-11-03] MEDS ORDERED: CARVEDILOL 12.5 MG TABLET. PO SCH (08:00)
[2018-11-03] MEDS: IPRATRPIUM/ALBUTEROL 0.5/2.5MG 3 ML NEBU. NEB SCH (08:07)
[2018-11-03] MEDS: ASPIRIN ENTERIC COATED 81 MG TABLET.DR. PO SCH (08:22)
[2018-11-03] MEDS: LACTOBACILLUS RHAMNOSUS GG 1 CAPSULE. PO SCH (08:22)
[2018-11-03] MEDS: amLODIPine BESYLATE 10 MG TABLET PO SCH (08:23)
[2018-11-03] MEDS: AZITHROMYCIN 250 MG TABLET. PO SCH (08:23)
[2018-11-03] MEDS ORDERED: cloNIDine HCL 0.1 MG TABLET PO SCH (09:00)
[2018-11-03] MEDS ORDERED: POTASSIUM CHLORIDE 20 MEQ TABLET.ER. PO ONE (09:15)
[2018-11-03] MEDS ORDERED: ASPI-612 PO (10:29)
[2018-11-03] MEDS ORDERED: CARV12.511 PO (10:29)
[2018-11-03] MEDS ORDERED: AMLO10TA8 PO (10:29)
[2018-11-03] MEDS ORDERED: ATOR20TA58 PO (10:29)
[2018-11-03] MEDS ORDERED: AZIT250T6 PO (10:29)
[2018-11-03] MEDS ORDERED: LACT1CAP19 PO (10:29)
[2018-11-03] MEDS ORDERED: CLON0.1T12 PO (10:29)
[2018-11-03 11:00] VITALS: BP 149/104
--- NOTE | 2018-11-03 11:58 | NUR ---
Discharge Note: SHERRY TOBAR [address] [place] [address] Discharge instructions and discharge home medications reviewed with Patient and a copy given. All questions have been answered and understanding verbalized. The following instructions and handouts were given: HTN, BP checks, VS parameters Discontinued lines and drains: 1 x PIV tip intact Patient discharged to home with spouse
--- NOTE | 2018-11-03 15:59 | PDOC3 ---
Discharge Summary Visit Information Date of Admission: Oct 31, 2018 Date of Discharge: Nov 03, 2018 Brief Hospital Course Allergies Allergies Coded Allergies Type Severity Reaction Last Updated Verified No Known Drug Allergies 10/30/18 No Vital Signs Vital Signs Date Time Temp Pulse Resp B/P (MAP) Pulse Ox O2 Delivery O2 Flow Rate FiO2 11/03/18 11:00 98.0 81 18 149/104 (119) 96 Room Air 98.0 Lab Results Laboratory Tests Test 11/02/18 04:05 11/03/18 04:35 Sodium Level 136 mmol/L (136-145) 139 mmol/L (136-145) Potassium Level 2.9 mmol/L (3.5-5.1) 3.3 mmol/L (3.5-5.1) Chloride Level 97 mmol/L (98-107) 100 mmol/L (98-107) Carbon Dioxide Level 28 mmol/L (21-32) 29 mmol/L (21-32) Anion Gap 11 (6-14) 10 (6-14) Blood Urea Nitrogen 12 mg/dL (8-26) 17 mg/dL (8-26) Creatinine 1.7 mg/dL (0.7-1.3) 1.5 mg/dL (0.7-1.3) Estimated GFR (Cockcroft-Gault) 53.5 61.8 Glucose Level 162 mg/dL (70-99) 113 mg/dL (70-99) Calcium Level 9.0 mg/dL (8.5-10.1) 9.2 mg/dL (8.5-10.1) Magnesium Level 2.2 mg/dL (1.8-2.4) Laboratory Tests Test 11/03/18 04:35 Sodium Level 139 mmol/L (136-145) Potassium Level 3.3 mmol/L (3.5-5.1) Chloride Level 100 mmol/L (98-107) Carbon Dioxide Level 29 mmol/L (21-32) Anion Gap 10 (6-14) Blood Urea Nitrogen 17 mg/dL (8-26) Creatinine 1.5 mg/dL (0.7-1.3) Estimated GFR (Cockcroft-Gault) 61.8 Glucose Level 113 mg/dL (70-99) Calcium Level 9.2 mg/dL (8.5-10.1) Brief Hospital Course 43 yo male with FIGUEROA and dizziness for several days. no sob or palpitations. dx of with HTN in 2014 and has been on MADHU-I, norvasc and hctz. 6 months ago started to experience rash so stopped BP meds. states BP has been high in 180-200 when he checks. does not follow with PCP at present. since Wednesday last week he has been having episodes of bifrontal FIGUEROA and lightheadedness. no chest pain or palpitations. no prior hx of CAD, VTE, arrhythmias. denies using drugs No tobacco nor ETOH. patient does exercise 6x/week. SBP remains 200s while on floor. at bedside. Patients FIGUEROA and dizziness likely due to due to Accelerated HTN. placed on coreg norvasc. started on MADHU-I and chlorthalidone but these two meds dced due to HOLLY and persistant hypokalemia. will dc on coreg 25 BID, norvasc 10 and clonidine 0.1 TID. TTE checked and showed preserved Ef. will follow up with cards for outpatient eval. renal duplex also checked and normal. No sonographic evidence of hemodynamically significant renal arterial stenosis is identified. patient did have elevated trop but likely demand ischemia. patient found to have renal failure likely from UC HTN. admission creatine 2.0 but improved to 1.4 at time of discharge. patient did have abnormal chest xray so CT done. treating for CAP with azithro which we will continue. needs to repeat CT chest in 2 months. apprec pulm and cards involvement in case. patient counselled on medication compliance. patient discharged in stable condition. dc BP 149/100. much improved from 220/100 on admission. Discharge Information Condition at Discharge: Stable Follow Up: Weeks (PCP in 1 week for BMP and BP check) Disposition/Orders: D/C to Home Scheduled Amlodipine Besylate (Amlodipine Besylate) 10 Mg Tablet, 10 MG PO DAILY for htn for 30 Days, #30 Prescribed by: NATAN BURCH MD on 11/03/18 1029 Aspirin (Aspirin Ec) 81 Mg Tablet.dr, 81 MG PO DAILYWBKFT for htn for 30 Days, #30 Prescribed by: NATAN BURCH MD on 11/03/18 1029 Atorvastatin Calcium (Atorvastatin Calcium) 20 Mg Tablet, 20 MG PO QHS for hld for 30 Days, #30 Prescribed by: NATAN BURCH MD on 11/03/18 1029 Azithromycin (Azithromycin Tablet) 250 Mg Tablet, 250 MG PO DAILY for pna for 3 Days, #3 Prescribed by: NATAN BURCH MD on 11/03/18 1029 Carvedilol (Carvedilol ) 12.5 Mg Tablet, 25 MG PO BIDWMEALS for htn for 30 Days, #120 Prescribed by: NATAN BURCH MD on 11/03/18 1029 Clonidine Hcl (Catapres) 0.1 Mg Tablet, 0.1 MG PO Q8HRS for htn for 30 Days, #90 Prescribed by: NATAN BURCH MD on 11/03/18 1029 Lactobacillus Rhamnosus Gg (Culturelle) 1 Each Cap.sprink, 1 CAP PO BID for on abx for 3 Days, #6 Prescribed by: NATAN BURCH MD on 11/03/18 1029 NATNA BURCH MD Nov 03, 2018 15:59
== END 2018-11-03 11:55 | disposition home or self-care (01) | DRG 871 ==
LOC: ER 20:20 → 6 SOUTH 22:00 → EEVIPCON 22:00
PROVIDERS: ADMIT Internal Medicine; ATTEND Internal Medicine
DX: A41.9 Sepsis, unspecified organism (principal); J18.9 Pneumonia, unspecified organism; Z68.41 Body mass index [BMI] 40.0-44.9, adult; I24.8 Other forms of acute ischemic heart disease; N17.9 Acute kidney failure, unspecified; I16.0 Hypertensive urgency; E87.6 Hypokalemia; E66.01 Morbid (severe) obesity due to excess calories; I10 Essential (primary) hypertension; E78.5 Hyperlipidemia, unspecified; F41.9 Anxiety disorder, unspecified; F03.90 Unspecified dementia, unspecified severity, without behavioral disturbance, psychotic disturbance, mood disturbance, and anxiety; Z82.49 Family history of ischemic heart disease and other diseases of the circulatory system; Z91.14 Patient's other noncompliance with medication regimen; Z91.19 Patient's noncompliance with other medical treatment and regimen
CPT/HCPCS: 36415; 70450; 71045; 71250; 80048; 80053; 80061; 80076; 80307; 81001; 83036; 83605; 83735; 83880; 84145; 84443; 84484; 85025; 87040; 87070; 87880; 93005; 93306; 93975; 94640; 94760; 96361; 96365; 96375; J0360; J0696; J3475; J3480; J3490; J7030; J7620; Q0144; 99291-25